=== PATIENT | male | born 1945 | race Caucasian/White ===

== ENCOUNTER → 2020-09-30 11:30 | Outpatient (CLI) | payer OTHER, SELFPAY ==
--- NOTE | 2020-09-30 | DI.MRI.S_ITS ---
PROCEDURE: MR LUMBAR SPINE WO CON INDICATIONS: Spinal stenosis, lumbar region TECHNIQUE: Noncontrast sagittal T1 spin echo and T2 fast echo, sagittal STIR, axial T1 and T2 fast spin echo through the lumbar spine. In cases with scoliosis, additional coronal T2 fast spin echo may be performed. COMPARISON: [facility], CR, XR LUMBAR SPINE 2 OR 3 VIEWS, 08/30/2020, 11:16. FINDINGS: Image quality: Excellent. Alignment and Curvature: Trace degenerative anterolisthesis of L4 on L5. Trace degenerative retrolisthesis of L3 on L4. Bone Marrow: Marrow is of normal overall signal. No acute vertebral body compression fractures. Spinal Cord: Conus medullaris terminates at the T12-L1 level. Visualized cord demonstrates normal signal and size. Paraspinous Soft Tissues: No paravertebral masses. T12-L1: No canal stenosis or foraminal stenosis. L1-L2: Mild disc bulge. No canal stenosis or foraminal stenosis. L2-L3: Disc bulge. Facet hypertrophy. No canal stenosis or foraminal stenosis. L3-L4: Disc bulge. Facet hypertrophy. No canal stenosis. Mild bilateral foraminal stenosis. L4-L5: Trace anterolisthesis of L4 on L5. Posterior disc bulge. Prominent facet and ligament hypertrophy. Moderate central canal stenosis and bilateral lateral recess stenosis. Moderate right foraminal narrowing with flattening deformity on the exiting right L4 nerve root. Mild to moderate left foraminal narrowing. L5-S1: Severe chronic disc height loss. Posterior disc post osteophyte. Facet hypertrophy. Mild canal stenosis. Mild right foraminal stenosis and moderate left foraminal stenosis. IMPRESSION: 1. Degenerative change with multilevel facet arthropathy. 2. There is moderate canal stenosis at L4-L5. There is also moderate right foraminal stenosis at that level. 3. There is mild canal stenosis at L5-S1. Dictated by: Dylan Rodrigues M.D. on 09/30/2020 at 14:42 Approved by: Dylan Rodrigues M.D. on 09/30/2020 at 14:48
== END ==
PROVIDERS: Referring Provider Physical Medicine & Rehabilitation Pain Medicine; Visit Provider Physical Medicine & Rehabilitation Pain Medicine
DX: M48.062 Spinal stenosis, lumbar region with neurogenic claudication (principal); M48.07 Spinal stenosis, lumbosacral region; M47.816 Spondylosis without myelopathy or radiculopathy, lumbar region; M47.817 Spondylosis without myelopathy or radiculopathy, lumbosacral region
CPT/HCPCS: 72148

== ENCOUNTER → 2021-01-20 10:12 | Outpatient (CLI) | payer OTHER, SELFPAY ==
[2021-01-20 11:23] LABS: COVID19 -Nasal RAPID Negative (Negative)
== END ==
PROVIDERS: PCP Internal Medicine; Referring Provider Orthopaedic Surgery Orthopaedic Surgery of the Spine; Visit Provider Nurse Practitioner Family
DX: Z20.822 Contact with and (suspected) exposure to COVID-19 (principal)
CPT/HCPCS: 87635

== ENCOUNTER → 2021-01-20 10:16 | Outpatient (CLI) | payer OTHER, SELFPAY ==
--- NOTE | 2021-01-20 10:21 | DI.CT.S_ITS ---
PROCEDURE: CT LUMBAR SPINE WO CON INDICATIONS: Intervertebral disc disorders with radiculopathy, lumbar reg TECHNIQUE: Noncontrast 3 mm thick sections acquired from the T12 level to the sacrum. Sagittal and coronal reformats were constructed. For radiation dose reduction, the following was used: automated exposure control. COMPARISON: [facility], MR, MR LUMBAR SPINE WO CON, 09/30/2020, 12:05. FINDINGS: Image quality: Excellent. Bones: There is there is grade 1 anterolisthesis of L4 on L5 measuring 2-3 mm, trace retrolisthesis of L3 on L4, 1-2 mm, unchanged no visualized fractures or dislocations. Multilevel anterior osteophytes are present with most prominent bridging osteophytes at L3-4. No suspicious osseous lesions. Severe disc space narrowing is present at L5-S1, mild to moderate throughout the remainder of the lumbar spine. Mild disc bulges are present L1-L2, L2-3, L3-4, L4-5 and L5-S1. Moderate spinal stenosis is present at L4-5, mild L5-S1 without change. Mild bilateral foraminal narrowing is present at L3-4, right greater than left, moderate right and [id number] left L4-5, mild right and moderate left L5-S1. Multilevel facet and ligamentum flavum hypertrophy are present. Soft tissues: No retroperitoneal masses or hematomas. Visualized aorta is normal in caliber. IMPRESSION: 1. Multilevel degenerative changes, stable compared to prior exam. 2. Spinal stenosis remains most prominent at L4-5 and L5-S1 secondary to disc bulge with contributing affective facet/ligamentum flavum arthropathy 3. Multilevel foraminal narrowing most notable at L4-5 secondary to facet/ligamentum flavum arthropathy. Dictated by: Alem Pérez M.D. on 01/20/2021 at 14:37 Approved by: Alem Péerz M.D. on 01/20/2021 at 14:42
== END ==
PROVIDERS: PCP Internal Medicine; Referring Provider Orthopaedic Surgery Orthopaedic Surgery of the Spine; Visit Provider Orthopaedic Surgery Orthopaedic Surgery of the Spine
DX: M51.16 Intervertebral disc disorders with radiculopathy, lumbar region (principal); M51.17 Intervertebral disc disorders with radiculopathy, lumbosacral region; M47.26 Other spondylosis with radiculopathy, lumbar region; M47.27 Other spondylosis with radiculopathy, lumbosacral region; M48.061 Spinal stenosis, lumbar region without neurogenic claudication; M48.07 Spinal stenosis, lumbosacral region; Z20.822 Contact with and (suspected) exposure to COVID-19
CPT/HCPCS: 72131; 87635

== ENCOUNTER 2021-01-23 06:04 | Observation (INO) | payer OTHER, SELFPAY ==
[2021-01-19 11:48] VITALS: BMI 23.6
[2021-01-23] VITALS (14 sets, daily range): BP systolic 117–146; BP diastolic 68–84; PULSE 64–98; RESP 8–17; TEMP 36.1–36.8; O2SAT 89–100; BMI 23.6
--- NOTE | 2021-01-23 | DI.RAD.S_ITS ---
PROCEDURE: XR LUMBAR SPINE 2-3V INDICATIONS: L4-5 L5-S1 TLIF TECHNIQUE: 2 views of the lumbar spine were acquired. COMPARISON: None. FINDINGS: Bones: Postsurgical changes compatible with L4-L5 and L5-S1 TLIF. Orthopedic hardware is in expected position. Orthopedic hardware is intact. Soft tissues: Overlying bowel gas pattern is normal. No suspicious soft tissue calcifications. IMPRESSION: Expected postsurgical change for L4-S1 TLIF. Dictated by: Reba Watkins MD, PhD on 01/23/2021 at 16:32 Approved by: Reba Watkins MD, PhD on 01/23/2021 at 16:33
[2021-01-23] MEDS: LACTATED RINGERS 1,000 ML 42 ML IV ×2 (06:58→10:38)
--- NOTE | 2021-01-23 07:41 | PM.PREOP ---
Pre-operative Note COVID-19 COVID-19 status: Negative Result date/Date tested (Pos, Neg/Pending): 01/21/21 Interval Note History & Physical reviewed/Exam performed by Physician: Yes Changes to H&P: No
[2021-01-23] MEDS: CEFAZOLIN 2 GM/20 ML SYRINGE IV ×3 (08:08→23:01)
--- NOTE | 2021-01-23 08:32 | SUR.OPER ---
Prone on spine table, head in foam head support, padded chest and pelvic supports, gel pad at knees, lower legs supported by pillows; nipples, genitalia and toes free of pressure, arms secured on foam padded arm boards at <90 degrees abduction. Tape over blanket at thigh secured to table.
[2021-01-23] MEDS: EPINEPHrine 1 MG/ML 0.15 MG INJ (08:46)
[2021-01-23] MEDS: BUPIVACAINE 0.25% (PF) VIAL 30 ML INJ (08:47)
--- NOTE | 2021-01-23 11:38 | PM.OP.1 ---
Operative Date/Time/Diagnoses Date of procedure: 01/23/21 Time of procedure: 07:45 Pre-op diagnosis: 1. L4-5, L5-S1 spondylolisthesis 2. L4-5, L5-S1 spinal stenosis Post-op diagnosis: same Procedure & Clinicians Procedure: 1. L4-5, L5-S1 Postero-lateral and posterior interbody fusion 2. L4-5, L5-S1 interbody cage placement. 3. L4-5, L5-S1 decompressive laminectomy with bilateral facetecomies 4. L4-5, L5-S1 Posterior segmental instrumentation 5. [place] of bone marrow from iliac crest 6. Utilization of microsurgical technique and operating microscope 7. Robotic assisted navigation surgery Same procedure as scheduled: Yes Indications: Patient has been having chronic back pain and worsening lumbar radiculopathy. Patient failed multiple conservative management with worsening pain weakness and numbness in his lower extremity. Patient has been having difficulty performing activity of daily living. After discussing risks benefits of treatment options, patient elected proceed with surgery. Surgeon: Lu Kuhn Systems Spec: Heriberto Hunt Click Yes if Unassisted: No Anesthesia Type: General Operative Notes Closure Type: primary Specimen(s): none sent Prosthetic devices, grafts, tissues, transplants, or devices: GLobus CREO MIS screws, Rise cages Estimated Blood Loss (mL): 200 Blood products transfused: none Procedure in detail: Patient was seen in the preoperative area. Risks and benefits of the surgery was discussed with the patient. Informed consent was obtained from the patient and placed in the chart. Surgical site was marked. Patient was taken to the operative room. General anesthesia was administered. Prophylactic antibiotic was given to the patient less than 30 min before the incision was made. Patient was placed into a prone position on the Nikolai table. Patient's back was then prepped and draped in the sterile fashion. Time-out was performed at this time. After patient was prepped and draped, patient's PSIS was palpated and marked bilaterally. Small 1 cm incision was made over the PSIS for placement of the reference probes. Two trocar was placed into the PSIS 1 on each side. The reference probe was attached to the trocar of the reference apparatus. At this time the C-arm imaging was used to confirm AP and lateral of L4-L5, L5-S1 vertebrae and merged the C-arm imaging using the StylePuzzle robotic navigation system with the CT of the lumbar spine. After successful merging was completed and confirmed, skin marker was used to srinivasa out the skin incision using the StylePuzzle robotic arm. Bilateral incision was made at this time. Pre templated trajectory was used and guided using the StylePuzzle robotic navigation system for bilateral L4, L5, S1 pedicle screw placement. This was done by using the robotic arm to guide the high-speed bur to make a cortical entry point. Next a drill was placed also using the robotic arm and guided using the navigation system drilling partially through bilateral L4, L5 and S1 pedicles. Next L4, L5, S1 pedicle screws it was pre templated and measured was placed onto the power owner operator tanker truck driver and inserted into the pedicles bilaterally. After all 6 screws were placed C-arm imaging was taken of both AP and lateral to confirm the placement. Excellent placement of the screws were confirmed and a matched precisely with the pre planned screw placement using the navigation system. MARs retractor was inserted using SpectraLinearivation guidence. Globus MARS retractors was placed inside the incision and docked onto the L4 and L5 lamina. Using microsurgical technique and operating microscope, a L4, L5 laminectomy and L4-5, L5-S1 facetectomy was performed using a Kerrison rongeur. Patient was found have severe lateral recess and neural foramen stenosis which was fully decompressed after the laminectomy facetectomy. More than 75% of the facets were removed during the process of decompression rendering L4-5, L5-S1 level grossly unstable and required a fusion procedure at the same time. The disc space at L4-5, L5-S1 was identified, and a total diskectomy was performed at L4-5, L5-S1 level. The endplates were decorticated using a rasp and shaver. The total diskectomy and decortication was performed at L4-5, L5-S1 level in order to to accomplish a L4-5, L5-S1 fusion. The local bone from the laminectomy and facetectomy was saved for local bone grafting. After the total diskectomy and decortication was completed, Trifecta bone graft material was combined with local bone that was harvested earlier. At this time, a separate skin is incision was made over the iliac crest. A Jamshidi needle was inserted into the iliac crest through a separate skin incision. 5 cc of bone marrow aspiration was obtained through the separate skin incision using a Jamshidi needle from the iliac crest. The bone marrow aspiration was combined with local bone and the Trifecta bone grafting material. The bone grafting material was placed into the L4-5, L5-S1 interbody space along with a expandable cage. The cage was expanded to its maximum height using the torque limiting screwdriver. The disc preparation as well as the cage insertion were also performed under navigation guidance. After the cage was placed, AP and lateral C-arm imaging was taken to confirm placement of the cage and excellent position was confirmed. Globus MARS retractor was inserted and docked onto the L4-5, L5-S1 posterolateral gutter on the right side. Using the power drill, posterior-lateral decortication was performed at L4-5, L5-S1 level until bleeding cortical bone was identified. The remaining bone grafting material was placed into the L4-5, L5-S1 posterior lateral gutter he order to accomplish posterolateral fusion at the L4-5, L5-S1 level. At this time the tulips were attached to the L4, L5, S1 pedicle screw shanks. After measuring the length of the rods, they were inserted into the tulips of the pedicle screws and locked in place using locking caps and torque limiting screwdriver bilaterally. Total 6 caps and 2 titanium rods was used in order to complete the posterior instrumentation construct. After all the hardware was placed, and confirmed with AP and lateral C-arm imaging, the wound was then irrigated with sterile normal saline and packed with Ray-Rosy gauze for 3 min to accomplish hemostasis. After the gauze was removed the deep fascia was closed with #1 Vicryl suture. The subcutaneous layer was closed with 2-0 Vicryl. The skin was closed with skin anne marie. Patient tolerated the procedure well. There were no complications. Neuro monitoring system was used to monitor patient's neurologic status throughout entire procedure. There was no disturbance of the neural monitoring signals throughout the case. Complications: none Post-operative Condition: stable Disposition: PACU Plan for aftercare: Admit to inpatient hospital
[2021-01-23] MEDS: fentaNYL 100 MCG/2 ML INJ IV ×2 (12:11→12:20)
[2021-01-23] MEDS: hydrOXYzine 50 MG/ML INJ IM (12:13)
[2021-01-23] MEDS: LORazepam 2 MG/ML INJ 0.5 MG IV (12:17)
--- NOTE | 2021-01-23 12:39 | SUR.PHASEI ---
2 level spine surgery states in alot of pain. Fentanyl, ativan and vistaril given. Sleeping soon after . When asked what pain level he is, states he doesn't know but in alot of pain.
[2021-01-23] MEDS: SODIUM CHLORIDE 0.9% 1,000 ML 100 ML IV ×2 (13:00→23:01)
[2021-01-23] MEDS: OXYCODONE IR 5 MG TABLET 10 MG PO ×3 (15:46→23:07)
--- NOTE | 2021-01-23 15:55 | PC.NURSE ---
Postop Note Pt arrived to room 228 from PACU at 1300. Drowsy, mostly sleeping on arrival, opening eyes to voice, minimal speech. SpO2 93-94% on RA, VSS. Dressing to lower back C/D/I. Scott patent and draining clear yellow urine. at bedside. Clothing to room closet, glasses to bedside table. No valuables to lock up in safe. At about 1500 pt awake and oriented x3, denies numbness to BLEs, strong pulses to bilateral feet, able to lift feet up off bed. Tolerating water and crackers without issue, medicated with 10 mg oxycodone for pain 08/27 to back. Oriented to room and to call light/bed/tv controls. Call light within reach and bed alarm on for safety.
--- NOTE | 2021-01-23 16:43 | PT.IIE ---
Current Diagnoses Spondylolisthesis, lumbar region (01/23/21) Spinal stenosis, lumbar region with neurogenic claudication (01/23/21) Intervertebral disc disorders with radiculopathy, lumbar region (01/23/21) Surgery Performed Operation Date: 01/23/21 07:45 Actual Procedures p L4-5, L5-S1 TLIF w. posterior inst. Robotic(Not Applicable) - Lu Kuhn MD Medical History (Last Updated 01/19/21 @ 12:19 by Jeannette Gómez RN) Arthritis GERD (gastroesophageal reflux disease) Glaucoma HLD (hyperlipidemia) Hx of subdural hematoma Lumbar disc disease with radiculopathy Lumbar spinal stenosis Neurological disorder (~2018) Prostate cancer Seasonal allergies Spondylolisthesis Physical Therapy Inpatient Evaluation/Re-Eval M1 PT/OT-IP Prior Functional Status Start: 01/23/21 12:54 Freq: NEEDED Status: Active Protocol: Document 01/23/21 16:43 JG (Rec: 01/23/21 16:59 JG [id number]) Medical Review Prior Functional Status Medical History Reviewed Yes Communication Pt was able to communicate fully Mobility and Gait No AD use. Progressively more limited in walking distance and duration over last year to point that shopping trips were difficulty to manage. Last fall in 2018. Activities of Daily Living and IADL's Indep in all ADLs Social History Household Members spouse,children Living Arrangements House Number of Floors (Floors) One Floor Number of Stairs To Enter/Railing? Garage: 2 CHELE, railing on L. Front door: small ramp to bypass stair. 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 Pt lives with [place] and daughter. Both and daughter can assist w/caregiving. Pt reports bed at home is quite high and he has to go onto tiptoes to scoot hips back in order to sit on EOB. Pt is also concerned about FWW accessing his side of bed as wall is close on his side. suggested they switch sides during rehab stage as her side has more room. Pt has recliner that doesn't lock consistently which he can use during day. Pt enjoys gardening while listening to audiobooks. M2 PT-IP Current Condition Start: 01/23/21 12:54 Freq: NEEDED Status: Active Protocol: Document 01/23/21 16:43 JG (Rec: 01/23/21 16:59 JG [id number]) Physical Therapy Current Condition Current Condition Evaluation Date 01/23/21 Treatment Diagnosis S/P L4-L5, L5-S1 lumbar fusion , difficulty walking, decreased ROM Onset Date 01/23/21 M3 PT-IP Subjective Start: 01/23/21 12:54 Freq: NEEDED Status: Active Protocol: Document 01/23/21 16:43 JG (Rec: 01/23/21 16:59 JG [id number]) Subjective Physical Therapy Visit Type Type Initial Evaluation Visit Start Time 16:06 Visit Stop Time 16:43 Total Visit Minutes 37 Notes SPT Renea was directly supervised by CHANI Dickens Number of RURAL CARRIER Visits 0 Physical Therapy Visit Comments Patient Comments Pt provided history, with mild input by , with easy conversational pace. Patient Goals Reduce low back pain at baseline Return to yard work without increase in pain Amb in community, complete shopping trips without increase in pain Therapy Pain Assessment Pain When Pain Assessed At Rest Pain Present Pain Present Pain Reported Location back, right leg Intensity 6 Scale Used Numeric (0 - 10) Pain Behaviors Guarding Pain Management Techniques Re-positioning,Timing of Activity with Medications M4 PT-IP Mobility and Gait Start: 01/23/21 12:54 Freq: NEEDED Status: Active Protocol: Document 01/23/21 16:43 AW (Rec: 01/23/21 16:58 AW [id number]) PT-Bed Mobility Assessment Rolling Type of Rolling Log Rolling,Roll to Left Level of Assist Minimal Assistance,1 Person Assistance Supine to Sit Supine to Sit Minimal Assistance,1 Person Assistance,Bedrails Sit to Supine Sit to Supine Contact Guard Assistance,1 Person Assistance Scooting Scooting to Edge of Bed Contact Guard Assistance PT-Transfer Assessment Sit to and From Stand Sit to and from Stand Minimal Assistance,1 Person Assistance,Use of Upper Extremities Equipment Transfer Assistive Device Gait Belt,Front Wheeled Walker Orthotic/Prosthetic Devices or Brace: No Transfers Transfer Destination Bed,Chair Transfer Technique pt amb with FWW Transfer Ability Level of Assist Minimal Assistance,1 Person Assistance,Use of Upper Extremities Comments Mobility Comments Pt was lying in the bed visiting with his spouse as PT and SPT arrived. BP was 129/ 77 HR 95. He indicated he normally gets out of bed to his left. He needed min A x 1 for log roll and for SL to sit transition but had good understanding of mechanics and technique. Pt sat EOB with and without UE support. He stood min A x 1 and used FWW to ambulate slowly around the room ~20 feet before transferring to the chair. He stated preference to go back to bed and transferred min A x 1 with FWW, min A x 1 for sit to supine. Gait Assessment Gait Gait Assistance Required: Contact Guard Assist,1 Person Assist Distance (Feet) 20 Able to Maintain Weight Bearing Status Yes During Gait Assistive Devices Assistive Device Gait Belt,Front Wheeled Walker Orthotic/Prosthetic Devices or Brace: No Gait Deviations General Gait Pattern Antalgic,Decreased Stride Length,Decreased Feet Clearance Factors Limiting Gait Function Factors Limiting Gait Function Decreased Strength,Limited Range of Motion,Pain Comments Gait Comments Pt ambulated with FWW using short steps but with good attention to twisting precaution. Stair Climbing Assessment Comments Stair Climbing Comments Not assessed. PT-Balance Assessment Sitting Balance and Reactions Static Sitting Balance Ability Good Dynamic Sitting Balance Ability Good Standing Balance and Reactions Static Standing Balance Ability Good Dynamic Standing Balance Ability Fair Device Used FWW M5 PT-IP Objective Assessments Start: 01/23/21 12:54 Freq: NEEDED Status: Active Protocol: Document 01/23/21 16:43 AW (Rec: 01/23/21 16:58 AW [id number]) Orientation Orientation/Cognition Level of Alertness Alert Orientation Name,Day of Week,Place, Situation Language Function Ability No Deficits Noted Safety Awareness Understands Safety Issues Memory Description No Deficits Noted Gross Range of Motion Lower Extremity ROM Assessment Within Functional Limits Strength Lower Extremity Strength Assessment Bilaterally Impaired Hip 4-/5 Knee 4/5 Ankle 4+/5 Sensation Assessment Sensation Gross Sensation WNL Comments Sensation Comments Pt denies paresthesias or numbness. M6 PT-IP Treatment Start: 01/23/21 12:54 Freq: NEEDED Status: Active Protocol: Document 01/23/21 16:43 AW (Rec: 01/23/21 16:58 AW [id number]) Physical Therapy Treatment Education Education Provided Precautions,Weight Bearing Status,Post-Op Packet,Safety Other Treatments Other Treatment Performed Educated pt on PT plan of care , weightbearing status, post- op spinal precautions, and safe use of FWW. M7 PT-IP Assessment and Plan Start: 01/23/21 12:54 Freq: NEEDED Status: Active Protocol: Document 01/23/21 16:43 AW (Rec: 01/23/21 16:58 AW [id number]) PT Summary Assessment and Plan Potential Rehabilitation Potential Good Status of Condition at Evaluation Evolving Summary Impairments Pain,ROM,Strength,Balance,Bed Mobility,Transfers,Gait Assessment Summary Milton is a 75 yo man seen for PT evaluation on POD0 following L4-S1 TLIF. He is independent with all mobility and ADL's at baseline but admits to decreased functional capacity related to back and RLE pain. On evaluation, pt was receptive to education on post -op precautions and was able to implement them functionally , requiring min assist for transfers and CGA for ambulation with FWW. PT anticipates pt will progress well enough during his hospital stay to discharge home with family assist. Pt is likely to benefit from outpatient PT to progress his strength and mobility independence. Goals Bed Mobility Goal Standby Assistance Transfer Goal Standby Assistance,Front Wheeled Walker Gait Goal Standby Assistance,Front Wheel Walker Gait Distance 150 Days to Meet Goals 4 Frequency of Treatment Frequency Of Treatment Twice a Day Treatment Plan Physical Therapy Treatment Plan Bed Mobility Training,Transfer Training,Gait Training, Therapeutic Exercise,Balance Retraining,Post Op Education, Discharge Planning,Hot or Cold Pack Other Recommendations and Next Treatment review precautions; progress Focus gait training with FWW Precautions Lumbar Precautions Log Roll,No Twisting,Limit Bending,Lifting Restriction of 10 lbs,Gait Belt above Incisional Area Weight Bearing Status Weight Bearing Status Weight Bear as Tolerated Recommendations To Nursing Amount of Assist Needed 1 Person Assist Discharge Recommendations PT Discharge Recommendations Home with Assistance, Outpatient PT Transportation Needs at Discharge Private Vehicle
[2021-01-23] MEDS: LATANOPROST 0.005% OPHTH 2.5 ML 1 DROPS EYE-BOTH (20:07)
[2021-01-23] MEDS: DORZOLAMIDE 2% OPHTH 10 ML 1 DROPS EYE-BOTH (20:07)
[2021-01-23] MEDS: gemfibroziL 600 MG TABLET PO (20:07)
[2021-01-23] MEDS: SENNOSIDES 8.6 MG TABLET 17.2 MG PO (20:07)
[2021-01-23] MEDS: DOCUSATE 100 MG CAPSULE PO (20:07)
[2021-01-23] MEDS: BRIMONIDINE 0.2% OPHTH 5 ML 1 DROPS EYE-BOTH (20:08)
[2021-01-23] MEDS: HYDROMORPHONE 0.5 MG INJ IV (20:08)
[2021-01-24] VITALS (7 sets, daily range): BP systolic 111–148; BP diastolic 63–86; PULSE 76–95; RESP 16–19; TEMP 36.3–37.4; O2SAT 94–99
[2021-01-24] MEDS: HYDROMORPHONE 0.5 MG INJ IV ×3 (04:08→23:30)
[2021-01-24 05:29] LABS: Hematocrit 32.6 % (41-53); Hemoglobin 11.5 g/dL (13.5-17.5)
[2021-01-24] MEDS: PANTOPRAZOLE DR 40 MG TABLET PO (06:31)
[2021-01-24] MEDS: OXYCODONE IR 5 MG TABLET 10 MG PO ×6 (06:31→22:50)
[2021-01-24] MEDS: BRIMONIDINE 0.2% OPHTH 5 ML 1 DROPS EYE-BOTH ×2 (08:24→20:50)
[2021-01-24] MEDS: DOCUSATE 100 MG CAPSULE PO ×2 (08:24→20:50)
[2021-01-24] MEDS: DORZOLAMIDE 2% OPHTH 10 ML 1 DROPS EYE-BOTH ×2 (08:24→20:50)
[2021-01-24] MEDS: gemfibroziL 600 MG TABLET PO ×2 (08:31→20:51)
--- NOTE | 2021-01-24 10:45 | PT.IPTN ---
Current Diagnoses Spondylolisthesis, lumbar region (01/23/21) Spinal stenosis, lumbar region with neurogenic claudication (01/23/21) Intervertebral disc disorders with radiculopathy, lumbar region (01/23/21) Surgery Performed Operation Date: 01/23/21 07:45 Actual Procedures p L4-5, L5-S1 TLIF w. posterior inst. Robotic(Not Applicable) - Lu Kuhn MD Physical Therapy Treatment Note M2 PT-IP Current Condition Start: 01/23/21 12:54 Freq: NEEDED Status: Active Protocol: Document 01/23/21 16:43 JG (Rec: 01/23/21 16:59 JG [id number]) Physical Therapy Current Condition Current Condition Evaluation Date 01/23/21 Treatment Diagnosis S/P L4-L5, L5-S1 lumbar fusion , difficulty walking, decreased ROM Onset Date 01/23/21 M3 PT-IP Subjective Start: 01/23/21 12:54 Freq: NEEDED Status: Active Protocol: Document 01/24/21 10:17 KS (Rec: 01/24/21 13:52 KS [id number]) Subjective Physical Therapy Visit Type Type Treatment Note Visit Start Time 10:17 Visit Stop Time 10:45 Total Visit Minutes 28 Notes Pts present during treatment Number of ENGINEERING SECRETARY Visits 1 Physical Therapy Visit Comments Patient Comments Pts present during treatment. Patient Goals Reduce low back pain at baseline Return to yard work without increase in pain Amb in community, complete shopping trips without increase in pain M4 PT-IP Mobility and Gait Start: 01/23/21 12:54 Freq: NEEDED Status: Active Protocol: Document 01/24/21 10:17 KS (Rec: 01/24/21 13:52 KS [id number]) PT-Bed Mobility Assessment Rolling Type of Rolling Log Rolling,Roll to Left Level of Assist Contact Guard Assistance,1 Person Assistance Supine to Sit Supine to Sit Contact Guard Assistance,1 Person Assistance,Bedrails Sit to Supine Sit to Supine Minimal Assistance,1 Person Assistance Scooting Scooting to Edge of Bed Contact Guard Assistance PT-Transfer Assessment Sit to and From Stand Sit to and from Stand Contact Guard Assistance,1 Person Assistance,Use of Upper Extremities Equipment Transfer Assistive Device Gait Belt,Front Wheeled Walker Orthotic/Prosthetic Devices or Brace: No Transfers Transfer Destination Bed Transfer Technique pt amb with FWW Transfer Ability Level of Assist Minimal Assistance,1 Person Assistance,Use of Upper Extremities Comments Mobility Comments Pt in bed upon arrival from therapy and able to recall 2/3 precautions (no lifting). CGA for logroll to L and sidelying<>sit w/ cues for sequencing and avoidance of twistng. Pt CGA for scooting to EOB and then sit<>stand CGA w/ FWW w/ cues for hand placement. Pt then ambulatd ~ 30 ft in room w/ FWW CGA and expressed fatigue and increased pain and requested to get back into bed. Min A for sit<>sidelyign and repositioning in bed. Pt left in bed w/ all needs in reach and SCDs and alarm on. Gait Assessment Gait Gait Assistance Required: Contact Guard Assist,1 Person Assist Distance (Feet) 30 Able to Maintain Weight Bearing Status Yes During Gait Assistive Devices Assistive Device Gait Belt,Front Wheeled Walker Orthotic/Prosthetic Devices or Brace: No Gait Deviations General Gait Pattern Antalgic,Decreased Stride Length,Decreased Feet Clearance Factors Limiting Gait Function Factors Limiting Gait Function Decreased Strength,Limited Range of Motion,Pain Comments Gait Comments Pt ambulated ~30 ft w/ FWW, slowly w/ decreased stride and foot clearance and increased use of BUE due to pain. Stair Climbing Assessment Comments Stair Climbing Comments Not assessed. Pt reports ramp at home. PT-Balance Assessment Sitting Balance and Reactions Static Sitting Balance Ability Good Dynamic Sitting Balance Ability Good Standing Balance and Reactions Static Standing Balance Ability Good Dynamic Standing Balance Ability Fair Device Used FWW M5 PT-IP Objective Assessments Start: 01/23/21 12:54 Freq: NEEDED Status: Active Protocol: Document 01/23/21 16:43 AW (Rec: 01/23/21 16:58 AW [id number]) Orientation Orientation/Cognition Level of Alertness Alert Orientation Name,Day of Week,Place, Situation Language Function Ability No Deficits Noted Safety Awareness Understands Safety Issues Memory Description No Deficits Noted Gross Range of Motion Lower Extremity ROM Assessment Within Functional Limits Strength Lower Extremity Strength Assessment Bilaterally Impaired Hip 4-/5 Knee 4/5 Ankle 4+/5 Sensation Assessment Sensation Gross Sensation WNL Comments Sensation Comments Pt denies paresthesias or numbness. M6 PT-IP Treatment Start: 01/23/21 12:54 Freq: NEEDED Status: Active Protocol: Document 01/24/21 10:17 KS (Rec: 01/24/21 13:52 KS [id number]) Physical Therapy Treatment Education Education Provided Precautions,Weight Bearing Status,Post-Op Packet,Safety Other Treatments Other Treatment Performed Educated pt on PT plan of care , weightbearing status, post- op spinal precautions, and safe use of FWW. M7 PT-IP Assessment and Plan Start: 01/23/21 12:54 Freq: NEEDED Status: Active Protocol: Document 01/24/21 10:17 KS (Rec: 01/24/21 13:52 KS [id number]) PT Summary Assessment and Plan Potential Rehabilitation Potential Good Status of Condition at Evaluation Evolving Summary Impairments Pain,ROM,Strength,Balance,Bed Mobility,Transfers,Gait Assessment Summary Pt requires CGA to Min A and cues during treatment. Able to perform logroll and sup<>sit CGA, CGA for sit to stand and ambulation, Min A for getting back into bed. He was limited in ambulation today due to pain and fatigue. He will benefit from continued IP PT to improve activity tolerance, strength, and safety but ultimately would benefit from outpatient rehab when appropriate. Goals Bed Mobility Goal Standby Assistance Transfer Goal Standby Assistance,Front Wheeled Walker Gait Goal Standby Assistance,Front Wheel Walker Gait Distance 150 Days to Meet Goals 4 Frequency of Treatment Frequency Of Treatment Twice a Day Treatment Plan Physical Therapy Treatment Plan Bed Mobility Training,Transfer Training,Gait Training, Therapeutic Exercise,Balance Retraining,Post Op Education, Discharge Planning,Hot or Cold Pack Other Recommendations and Next Treatment review precautions; progress Focus gait training with FWW Precautions Lumbar Precautions Log Roll,No Twisting,Limit Bending,Lifting Restriction of 10 lbs,Gait Belt above Incisional Area Weight Bearing Status Weight Bearing Status Weight Bear as Tolerated Recommendations To Nursing Amount of Assist Needed 1 Person Assist Discharge Recommendations PT Discharge Recommendations Home with Assistance, Outpatient PT Transportation Needs at Discharge Private Vehicle
--- NOTE | 2021-01-24 10:51 | P.PN_ITS ---
Subjective Subjective Date Patient Seen: 01/24/21 Time Patient Seen: 10:51 Interval history: Patient's pain is been moderate to severe. Denies fever or chills. No nausea or vomiting. Exam Vital Signs (past 8 hours): - 01/24/21 04:00 01/24/21 07:55 01/24/21 09:00 Temperature 99.0 F 99.0 F Pulse Rate 82 76 Respiratory Rate 19 18 Blood Pressure 111/63 131/81 Pulse Oximetry 96 97 Oxygen Delivery Method Room Air Oxygen Flow Rate 0 Narrative Exam Narrative: 75-year-old male resting comfortably in bed in no apparent distress. Dressing is Clean, dry, intact.. Motor functions intact bilateral lower extremities. Se nsation grossly intact to light touch bilateral lower extremities. Objective Labs Result Diagrams: 01/24/21 05:00 Labs: Laboratory Results - last 24 hr 01/24/21 05:00 Hgb 11.5 L Hct 32.6 L PFSH Medical History Arthritis GERD (gastroesophageal reflux disease) Glaucoma HLD (hyperlipidemia) Hx of subdural hematoma Lumbar disc disease with radiculopathy Lumbar spinal stenosis Neurological disorder (~2018) Prostate cancer Seasonal allergies Spondylolisthesis Surgical History History of kj hole surgery (~2018) History of penile implant Hx of bilateral cataract extraction Hx of foot surgery Hx of LASIK Hx of radical prostatectomy (~2013) Hx of repair of right rotator cuff (2019) Hx of sinus surgery Hx of tonsillectomy Social History household members: spouse and children Smoking Status: Never smoker alcohol intake: current Assessment & Plan Post-op Postoperative Procedures: Procedures Operation Date: 01/23/21 07:45 Actual Procedure Side Surgeon p L4-5, L5-S1 TLIF w. posterior inst. Robotic Not Applicable Lu Kuhn MD Postoperative day: 1 Postoperative status: marginal pain control Postoperative plan narrative: Mobilize with physical therapy Limit bending, lifting, twisting Multimodal pain management Disposition home likely tomorrow. Quality VTE Deep Vein Thrombosis/Pulmonary Embolism Present on Admission: No
--- NOTE | 2021-01-24 14:08 | CM.DANOTE ---
DCP/Assessment: Reviewed chart. Patient is a 75yr old male admitted to [facility] for elective spine surgery which was performed on 01-[address] Kuhn. PCP is Annika Fox. Primary payor is 1)[email or web address] 2)Self. Met with patient and spouse at bedside explained CM/SW role. Patient alert and oriented, resting in bed at time of visit. Patient reports that he plans to d/c home when medically stable. Patient reports that he has been seen by therapy and patient does not anticipate any additional d/c planning needs. Patient with tyrell at time of BUTTON RECLAIMER visit. RN reports that she will be taking it out this afternoon. Orthopedic team expected to round again on patient this afternoon. Patient reports that he still is in a considerate amount of pain and hopes to d/c tomorrow? Encouraged patient and spouse to discuss d/c date with provider. P: Home when stable. KJS Discharge Planning/Care Management CM Discharge Assessment Start: 01/24/21 14:06 Freq: Status: Active Protocol: Document 01/24/21 14:06 KJS (Rec: 01/24/21 14:08 KJS [id number]) Discharge Planning Assessment Assigned Assessment Expert Brandy Hendricks BUTTON RECLAIMER Contact Information Asia Vicente (spouse) ph# [phone] Advance Directives? Yes Advance Directives on File No History Provided By Patient,Significant Other, Medical Record Prior Living Arrangements House Household Members spouse,children Type of transporation used prior to Drives own vehicle admit Independent with ADL's Yes Is patient alert and oriented? Yes Caregiver for Another No DME Already Rented / Owned FWW / Walker Comment Has FWW but does not use at baseline. Barriers to Discharge No Discharge Plan Home Transportation Arrangement Family to provide transport. Referrals Initiated None needed Whiteboard Updated in Patient Room with Yes name and ext. # of Assessment Expert Review Status In Process Next Review Type Continued Stay Review Pre-Anesthesia Assessment Start: 01/19/21 11:48 Freq: Status: Complete Protocol: Document 01/19/21 11:48 CAB (Rec: 01/19/21 12:37 CAB [id number]) Pre-Anesthesia Assessment Preferred Name Milton Patient Information Reviewed Via Phone Assessment Assessment Completed With Patient Diagnostic Results BMP/CMP,CBC,EKG Comment Outside labs/EKG scanned, COVID screen @ 01/20/21 Primary Care Provider Annika Fox Seen Specialist in Last 12 Months Yes Specialist Seen Orthopedist Primary Language Telugu Salesperson Stereo Equipment Required No Height 175.26 cm Weight 72.575 kg Body Mass Index (BMI) 23.6 Hearing Ability Hard of Hearing,Use of Hearing Aid Visual Assist Glasses Dentition Type Teeth, Natural Present Barriers to Learning None Hx Anesthesia Reactions No Hx Family Anesthesia Reaction No Hx Malignant Hyperthermia No Hx Blood Transfusions No Anesthesia Review Requested No alcohol intake current Alcohol Intake Frequency Other: Occasional Smoking Status Never smoker Substance Use Type does not use Pain Present Pain Reported Musculoskeletal Symptoms Abnormal Gait,Back Pain, Difficulty Walking History of Falling (Recent or History of Yes ) Patient is completely paralyzed or No completely immobile Mental Status Oriented to own ability Is patient on oxygen? No Does patient have ALVARADO/SOB No Hx Sleep Apnea No Currently Taking a Beta Amanda No Can You Climb a Flight of Stairs Without Yes SOB Hx Chest Pain No Hx SOB No Hx Syncope or Dizziness No Anti-Coagulant Therapy No Has a Forensic Analyst No Cardiac Testing No Hx Pacemaker/ICD No Pacemaker Rep Required? No Cardiac Clearance Received Not Applicable Diet Type At Home Regular dysphagia Yes: Mild, with solids, pills Gastrointestinal Symptoms Reflux Bladder Pattern Frequency Urinary Catheter Present No Hx Urinary Self Catheterization No Diabetes No HgbA1C 5.8 Date 01/06/21 Presence of External or Internal Medical Yes: Penile implant, sara IOLs, Devices hearing aid Have you had any close contact with No someone diagnosed with COVID-19? Received a COVID vaccine? Yes: +Booster Received all doses? Yes Marital Status Lives With spouse,children Prior Living Arrangements House Number of Floors (Floors) One Floor Support System Child/Children,Spouse Patient Discharge Plan Description Return Home Comment Pt advised 2 night length of stay per surgeon Feels Safe in Current Environment Yes Been Physically Hurt or Threatened By a No Person in Current Environment Do you have thoughts of harming yourself None or others? Are you currently considering suicide? No Do you have a plan to hurt yourself or No Plan others? Do You Have Any Spiritual Beliefs That No May Affect Your HC Choices? Do You Have Any Cultural Practices That No May Affect Your HC Choices? Who Can We Speak to About Patient's Care Family, friends Identifying Code for Release of Patient Declines to issue Information Health Care Proxy/Next of Kin Asia () Health Care Proxy Emergency Contact Name Asia () Emergency Contact Advance Directives? Yes: Working on Requested Patient Bring Advanced Yes Directives DOS Power of Plate Corrector Yes Power of Plate Corrector Name Asia () Power of Plate Corrector PAC Instructions Durable medical equipment, Medications to take/avoid, Nasal antibiotic,No ETOH/ petroleum product on skin DOS, NPO,Post-op transportation,Pre -surgical wash,Sensory aids, Sturdy shoes/comfortable clothes,Do not bring valuables and remove jewelry
--- NOTE | 2021-01-24 15:09 | PT.IPTN ---
Current Diagnoses Spondylolisthesis, lumbar region (01/23/21) Spinal stenosis, lumbar region with neurogenic claudication (01/23/21) Intervertebral disc disorders with radiculopathy, lumbar region (01/23/21) Surgery Performed Operation Date: 01/23/21 07:45 Actual Procedures p L4-5, L5-S1 TLIF w. posterior inst. Robotic(Not Applicable) - Lu Kuhn MD Physical Therapy Treatment Note M2 PT-IP Current Condition Start: 01/23/21 12:54 Freq: NEEDED Status: Active Protocol: Document 01/23/21 16:43 JG (Rec: 01/23/21 16:59 JG [id number]) Physical Therapy Current Condition Current Condition Evaluation Date 01/23/21 Treatment Diagnosis S/P L4-L5, L5-S1 lumbar fusion , difficulty walking, decreased ROM Onset Date 01/23/21 M3 PT-IP Subjective Start: 01/23/21 12:54 Freq: NEEDED Status: Active Protocol: Document 01/24/21 14:46 KS (Rec: 01/24/21 15:30 KS [id number]) Subjective Physical Therapy Visit Type Type Treatment Note Visit Start Time 14:46 Visit Stop Time 15:09 Total Visit Minutes 23 Notes Pts present during treatment Number of DISPENSING OPTICIAN APPRENTICE Visits 2 Physical Therapy Visit Comments Patient Comments Pts present during treatment. Patient Goals Reduce low back pain at baseline Return to yard work without increase in pain Amb in community, complete shopping trips without increase in pain Therapy Pain Assessment Pain When Pain Assessed During Mobility Pain Present Pain Present Pain Reported Location Lower Back Intensity 5 Scale Used Numeric (0 - 10) Pain Behaviors Guarding Pain Management Techniques Re-positioning,Timing of Activity with Medications M4 PT-IP Mobility and Gait Start: 01/23/21 12:54 Freq: NEEDED Status: Active Protocol: Document 01/24/21 14:46 KS (Rec: 01/24/21 15:30 KS [id number]) PT-Bed Mobility Assessment Rolling Type of Rolling Log Rolling,Roll to Left Level of Assist Contact Guard Assistance,1 Person Assistance Supine to Sit Supine to Sit Contact Guard Assistance,1 Person Assistance,Bedrails Sit to Supine Sit to Supine Minimal Assistance,1 Person Assistance Scooting Scooting to Edge of Bed Contact Guard Assistance PT-Transfer Assessment Sit to and From Stand Sit to and from Stand Contact Guard Assistance,1 Person Assistance,Use of Upper Extremities Equipment Transfer Assistive Device Gait Belt,Front Wheeled Walker Orthotic/Prosthetic Devices or Brace: No Transfers Transfer Destination Bed Transfer Technique pt amb with FWW Transfer Ability Level of Assist Minimal Assistance,1 Person Assistance,Use of Upper Extremities Comments Mobility Comments Pt in bed and able to recall all spinal precations. CGA for logroll and sup<>sit as well as scooting EOB. CGA and cues for sit<>stand w/ FWW. Pt then ambulated ~50 ft around room w/ FWW and CGA. Pt ambulated very slowly w/ small steps and minimal foot clearance. Pt then returned to bed, Min A and cues for sit<>sidelying. Pt left in bed w/ all needs in reach. Gait Assessment Gait Gait Assistance Required: Contact Guard Assist,1 Person Assist Distance (Feet) 50 Able to Maintain Weight Bearing Status Yes During Gait Assistive Devices Assistive Device Gait Belt,Front Wheeled Walker Orthotic/Prosthetic Devices or Brace: No Gait Deviations General Gait Pattern Antalgic,Decreased Stride Length,Decreased Feet Clearance Factors Limiting Gait Function Factors Limiting Gait Function Decreased Strength,Limited Range of Motion,Pain Comments Gait Comments Please refer to mobility section for details. Stair Climbing Assessment Comments Stair Climbing Comments Not assessed. Pt reports ramp at home. PT-Balance Assessment Sitting Balance and Reactions Static Sitting Balance Ability Good Dynamic Sitting Balance Ability Good Standing Balance and Reactions Static Standing Balance Ability Good Dynamic Standing Balance Ability Fair Device Used FWW M5 PT-IP Objective Assessments Start: 01/23/21 12:54 Freq: NEEDED Status: Active Protocol: Document 01/23/21 16:43 AW (Rec: 01/23/21 16:58 AW [id number]) Orientation Orientation/Cognition Level of Alertness Alert Orientation Name,Day of Week,Place, Situation Language Function Ability No Deficits Noted Safety Awareness Understands Safety Issues Memory Description No Deficits Noted Gross Range of Motion Lower Extremity ROM Assessment Within Functional Limits Strength Lower Extremity Strength Assessment Bilaterally Impaired Hip 4-/5 Knee 4/5 Ankle 4+/5 Sensation Assessment Sensation Gross Sensation WNL Comments Sensation Comments Pt denies paresthesias or numbness. M6 PT-IP Treatment Start: 01/23/21 12:54 Freq: NEEDED Status: Active Protocol: Document 01/24/21 14:46 KS (Rec: 01/24/21 15:30 KS [id number]) Physical Therapy Treatment Education Education Provided Precautions,Weight Bearing Status,Post-Op Packet,Safety Other Treatments Other Treatment Performed Demonstrated gait belt application and use to pts . M7 PT-IP Assessment and Plan Start: 01/23/21 12:54 Freq: NEEDED Status: Active Protocol: Document 01/24/21 14:46 KS (Rec: 01/24/21 15:30 KS [id number]) PT Summary Assessment and Plan Potential Rehabilitation Potential Good Status of Condition at Evaluation Evolving Summary Impairments Pain,ROM,Strength,Balance,Bed Mobility,Transfers,Gait Assessment Summary Pt CCGA for most mobility and ambulation, but still requiring Min A to assist LE back into bed during sidelying <>sit. Good recall of spinal precautions and FWW use. Able to ambulate ~50 ft w/ FWW CGA. Demonstrated gaitbelt application to pts , but will need to continue caregiver training and demonstrate assistance w/ transfers and bed mobility prior to d/c. Goals Bed Mobility Goal Standby Assistance Transfer Goal Standby Assistance,Front Wheeled Walker Gait Goal Standby Assistance,Front Wheel Walker Gait Distance 150 Days to Meet Goals 4 Frequency of Treatment Frequency Of Treatment Twice a Day Treatment Plan Physical Therapy Treatment Plan Bed Mobility Training,Transfer Training,Gait Training, Therapeutic Exercise,Balance Retraining,Post Op Education, Discharge Planning,Hot or Cold Pack Other Recommendations and Next Treatment review precautions; progress Focus gait training with FWW, complete caregiver training Precautions Lumbar Precautions Log Roll,No Twisting,Limit Bending,Lifting Restriction of 10 lbs,Gait Belt above Incisional Area Weight Bearing Status Weight Bearing Status Weight Bear as Tolerated Recommendations To Nursing Amount of Assist Needed 1 Person Assist Discharge Recommendations Transportation Needs at Discharge Private Vehicle
--- NOTE | 2021-01-24 15:58 | OT.IP.EVAL ---
Current Diagnoses Spondylolisthesis, lumbar region (01/23/21) Spinal stenosis, lumbar region with neurogenic claudication (01/23/21) Intervertebral disc disorders with radiculopathy, lumbar region (01/23/21) Surgery Performed Operation Date: 01/23/21 07:45 Actual Procedures p L4-5, L5-S1 TLIF w. posterior inst. Robotic(Not Applicable) - Lu Kuhn MD Past Medical History (Last Reviewed 01/24/21 @ 10:52 by Heriberto Hunt PA-C) Arthritis GERD (gastroesophageal reflux disease) Glaucoma History of kj hole surgery (~2017) History of penile implant HLD (hyperlipidemia) Hx of bilateral cataract extraction Hx of foot surgery Hx of LASIK Hx of radical prostatectomy (~2013) Hx of repair of right rotator cuff (2019) Hx of sinus surgery Hx of subdural hematoma Hx of tonsillectomy Lumbar disc disease with radiculopathy Lumbar spinal stenosis Neurological disorder (~2018) Prostate cancer Seasonal allergies Spondylolisthesis Surgical History (Last Reviewed 01/24/21 @ 10:52 by Heriberto Hunt PA-C) History of kj hole surgery (~2017) History of penile implant Hx of bilateral cataract extraction Hx of foot surgery Hx of LASIK Hx of radical prostatectomy (~2013) Hx of repair of right rotator cuff (2019) Hx of sinus surgery Hx of tonsillectomy Occupational Therapy Inpatient Evaluation/Re-Eval M1 PT/OT-IP Prior Functional Status Start: 01/23/21 12:54 Freq: NEEDED Status: Active Protocol: Document 01/24/21 15:10 [facility] (Rec: 01/24/21 16:38 [facility] [id number]) Medical Review Prior Functional Status Medical History Reviewed Yes Communication Pt was able to communicate fully Mobility and Gait No AD use. Progressively more limited in walking distance and duration over last year to point that shopping trips were difficulty to manage. Last fall in 2018. Activities of Daily Living and IADL's Indep in all ADLs Social History Household Members spouse,children Living Arrangements House Number of Floors (Floors) One Floor Number of Stairs To Enter/Railing? Garage: 2 CHELE, railing on L. Front door: small ramp to bypass stair. 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 Pt lives with [place] and daughter. Both and daughter can assist w/caregiving. Pt reports bed at home is quite high and he has to go onto tiptoes to scoot hips back in order to sit on EOB. Pt is also concerned about FWW accessing his side of bed as wall is close on his side. suggested they switch sides during rehab stage as her side has more room. Pt has recliner that doesn't lock consistently which he can use during day. Pt enjoys gardening while listening to audiobooks. M2 OT-IP Current Condition Start: 01/24/21 16:26 Freq: Status: Active Protocol: Document 01/24/21 15:10 [facility] (Rec: 01/24/21 16:38 [facility] [id number]) Occupational Therapy Current Condition Current Condition Evaluation Date 01/24/21 Treatment Diagnosis S/p L4-5 L5-S1 TLIF Diagnosis Onset Date 01/23/21 M3 OT- IP Subjective and Pain Start: 01/24/21 16:26 Freq: Status: Active Protocol: Document 01/24/21 15:10 [facility] (Rec: 01/24/21 16:38 [facility] [id number]) OT- Subjective Occupational Therapy Visit Type Type Initial Evaluation Visit Start Time 15:10 Visit Stop Time 15:58 Total Visit Minutes 48 Occupational Therapy Visit Comments Patient Comments Pt's present for OT eval and caregiver training. OT Pain Assessment Pain When Pain Assessed During Mobility Pain Present Pain Present Pain Reported Location Lower Back Intensity 6 Scale Used Numeric (0 - 10) M4 OT- IP ADL's Start: 01/24/21 16:26 Freq: Status: Active Protocol: Document 01/24/21 15:10 [facility] (Rec: 01/24/21 16:38 [facility] [id number]) OT ADL-Grooming General Evaluation Grooming Ability Standby Assistance Areas Needing Assistance Retrieving/Set-up of Grooming Items OT ADL-Oral Care General Eval Oral Care Ability Independent Comments Oral Care Comments vc to spit into a cup to bets follow his back precautions. OT ADL-Dressing General Eval Lower Body Dressing Ability Maximum Assistance Areas Needing Assistance Underpants/Brief,Socks Comments OT Dressing Comments Initiated education of LB dressing equipment and able to practice for his brief management needs. OT ADL-Toileting General Evaluation Toileting Ability Minimal Assistance Areas Needing Assistance Manage Clothing Comments OT Toileting Comments Assist to help pull up brief in the back when standing. Pt 's states they have a bidet at home but pt chooses not to use it. Also suggested use of wet wipes to increased ease for hygiene needs. Pt able to follow his back precautions while wiping after a bowel movement. OT ADL-Bathing Comments OT Bathing Comments TO do with his tomorrow. M5 OT- IP IADL's Start: 01/24/21 16:26 Freq: Status: Active Protocol: Document 01/24/21 15:10 [facility] (Rec: 01/24/21 16:38 [facility] [id number]) OT-Instrumental Activities of Daily Living Home Safety Awareness Home Safety Comments Pt a bit groggy and pt's to be able to assist pt at home for his needs. Pt needing reminders for his back precautions. M6 OT- IP Functional Cognition Start: 01/24/21 16:26 Freq: Status: Active Protocol: Document 01/24/21 15:10 [facility] (Rec: 01/24/21 16:38 [facility] [id number]) Cognitive Factors Limiting Selfcare Function Cognitive Ability Level of Alertness Alert Patient Orientation Name,Place,Situation Attention Span Ability Capable of Focused Attention, Capable of Sustained Attention Ability to Follow Commands Able to Follow One Step Commands Safety Awareness Decreased Recall of Precautions,Decreased Ability to Apply Precautions, Underestimates Need for Assistance Cognitive Comments Cognitive Assessment Comments Pt needing reminders to slow down , recall and follow his back precautions. Pt needing simple cues to follow. OT- Vision and Hearing OT- Vision Assessment Visual Acuity Glasses All The Time M7 OT- IP Mobility and Balance Start: 01/24/21 16:26 Freq: Status: Active Protocol: Document 01/24/21 15:10 [facility] (Rec: 01/24/21 16:38 [facility] [id number]) OT- Bed Mobility Assessment Supine to Sit Supine to Sit Assist Standby Assistance,Bedrails Sit to Supine Sit to Supine Assist Minimal Assistance,1 Person Assistance,Bedrails Scooting Scooting to Edge of Bed Standby Assistance OT-Transfer Assessment Sit to and From Stand Sit to and from Stand Contact Guard Assistance, Minimal Assistance Transfers Transfer Ability Contact Guard Assistance Technique Transfer Destination Bed,Toilet Transfer Technique Stand Step Pivot Devices Transfer Assistive Devices Gait Belt,Front Wheeled Walker Comments Mobility Comments Assist to help get his legs back in bed. Able to educated his on how to mike/doff the gait belt and how to assist for bed mobility needs and transfers. Pt's able to show good safety for needs. Pt's needing occasional cues for hand placement and how to lower pt down to lower surfaces. Pt has a very high bed at home and able to simulate with the hospital bed here. OT- Balance Assessment Sitting Balance and Reactions Static Sitting Balance Ability Good Dynamic Sitting Balance Ability Good Standing Balance and Reactions Static Standing Balance Ability Fair M9 OT- IP Assessment and Plan Start: 01/24/21 16:26 Freq: Status: Active Protocol: Document 01/24/21 15:10 [facility] (Rec: 01/24/21 16:38 [facility] [id number]) OT Summary Assessment and Plan Potential Rehabilitation Potential Good Analytic Complexity at Evaluation Low Summary OT Impairments Pain,Balance,Functional Cognition,Functional Mobility, Dressing,Toileting,Bathing, Toilet Transfers,Shower Transfers,Activity Tolerance Progress Towards Goals Progressing Toward Goals Assessment Summary Pt low complexity and pt's able to initiate caregiver training for ADl and mobility needs. Pt's to go over shower and dressing needs tomorrow during caregiver training. Pt to go home when medically stable with his . Goals Grooming Goal Independent Dressing Goal Independent Toileting Goal Independent Bathing Goal Minimal Assistance Toilet Transfer Goal Independent Shower Transfer Goal Standby Assistance Patient/Caregiver Education Goal Demonstrate Post-Op Precautions,Caregiver Independent Assisting Patient Days to Meet Goals 3 Frequency of Treatment Frequency Of Treatment Once a Day Treatment Plan OT Treatment Plan ADL Training,Functional Cognition Training,Functional Mobility,Patient/Family Education,Discharge Planning Other Treatment Recommendations and Next shower/caregiver training Treatment Focus Discharge Recommendations OT Discharge Recommendations Home with Assistance Transportation Needs at Discharge Private Vehicle
--- NOTE | 2021-01-24 16:25 | OT.IPNOTE ---
Pt being discharged and on the phone with his son. Pt will need 24/7 available assist at home.
[2021-01-24] MEDS: SODIUM CHLORIDE 0.9% FLUSH 10 ML IV (17:54)
[2021-01-24] MEDS: SENNOSIDES 8.6 MG TABLET 17.2 MG PO (20:50)
[2021-01-24] MEDS: LATANOPROST 0.005% OPHTH 2.5 ML 1 DROPS EYE-BOTH (20:50)
[2021-01-25] MEDS: OXYCODONE IR 5 MG TABLET 10 MG PO ×5 (02:37→21:39)
[2021-01-25 02:43] VITALS: BP 134/81; PULSE 93; RESP 20; TEMP 37.4; O2SAT 96
[2021-01-25] MEDS: PANTOPRAZOLE DR 40 MG TABLET PO (05:37)
[2021-01-25] MEDS: ACETAMINOPHEN 325 MG TABLET 650 MG PO ×3 (07:48→21:40)
[2021-01-25] MEDS: hydrOXYzine pamoate 25 MG CAPSULE PO ×3 (07:49→21:40)
[2021-01-25 07:50] VITALS: BP 137/87; PULSE 90; RESP 17; TEMP 37.4; O2SAT 94
--- NOTE | 2021-01-25 08:33 | PM.PNPO.1 ---
Subjective Subjective Date Patient Seen: 01/25/21 Time Patient Seen: 08:33 Interval history: Back pain is severe. Denies fever or chills. No nausea or vomiting. Exam Vital Signs (past 8 hours): - 01/25/21 02:43 Temperature 99.4 F Pulse Rate 93 H Respiratory Rate 20 Blood Pressure 134/81 Pulse Oximetry 96 Oxygen Delivery Method Room Air Oxygen Flow Rate 0 Narrative Exam Narrative: 75-year-old male resting in bed in no apparent distress. Dressing Clean, dry, intact.. Motor functions intact bilateral lower extremities. Sensation grossly intact to light touch bilateral lower extremities. Objective Labs Result Diagrams: 01/24/21 05:00 PFSH Medical History Arthritis GERD (gastroesophageal reflux disease) Glaucoma HLD (hyperlipidemia) Hx of subdural hematoma Lumbar disc disease with radiculopathy Lumbar spinal stenosis Neurological disorder (~2018) Prostate cancer Seasonal allergies Spondylolisthesis Surgical History History of kj hole surgery (~2018) History of penile implant Hx of bilateral cataract extraction Hx of foot surgery Hx of LASIK Hx of radical prostatectomy (~2013) Hx of repair of right rotator cuff (2019) Hx of sinus surgery Hx of tonsillectomy Social History household members: spouse and children Smoking Status: Never smoker alcohol intake: current Assessment & Plan Post-op Postoperative Procedures: Procedures Operation Date: 01/23/21 07:45 Actual Procedure Side Surgeon p L4-5, L5-S1 TLIF w. posterior inst. Robotic Not Applicable Lu Kuhn MD Postoperative status: marginal pain control Postoperative plan narrative: Mobilize with physical therapy, limit bending, lifting, twisting Continue work on pain control Disposition today or tomorrow depending on his ability to mobilize better with PT Quality VTE Deep Vein Thrombosis/Pulmonary Embolism Present on Admission: No
[2021-01-25] MEDS: DOCUSATE 100 MG CAPSULE PO ×2 (10:22→21:39)
[2021-01-25] MEDS: SODIUM CHLORIDE 0.9% FLUSH 10 ML IV ×2 (10:22→21:54)
--- NOTE | 2021-01-25 10:51 | PC.NURSE ---
Addendum entered by Marybel Morrell R.N. 01/25/21 19:13: Pt up multiple times to BR without bouts of hypotension or nausea later today and able to tolerate working with therapy. However he reports pain 9/10 after therapy not completely controlled with PRN oxycodone. His pain is better controlled this evening with additional IV 0.5mg hydromorphone. Pt able to eat dinner, supportive at bedside. Original Note: This a.m. patient reporting pain 6-7/10 to back and medicated with PRN oxycodone, tylenol and vesteril. He got up to the bathroom to have a BM and became nauseated and diaphoretic. Pt was hypotensive at the time 90's/50's HR 50's Pt with x1 large emesis. He is assisted back to bed and BP improved 117/66 HR 67.Triage notified and received orders to administer 1 liter NS bolus. Pt given zofran PRN x1. he was able to finish about half of his breakfast. Therapy attempted to see patient later this a.m. however he denied wanting to get up this soon, they will try again this afternoon
--- NOTE | 2021-01-25 11:08 | OT.IPNOTE ---
Per nursing pt got diaphoretic while trying have a BM this morning. Pt states not wanting to be seen for OT and just wanting to rest. To check on the pt later.
[2021-01-25] MEDS: SODIUM CHLORIDE 0.9% 1,000 ML 1000 ML IV (12:00)
--- NOTE | 2021-01-25 12:08 | PT.IPTN ---
Current Diagnoses Spondylolisthesis, lumbar region (01/23/21) Spinal stenosis, lumbar region with neurogenic claudication (01/23/21) Intervertebral disc disorders with radiculopathy, lumbar region (01/23/21) Surgery Performed Operation Date: 01/23/21 07:45 Actual Procedures p L4-5, L5-S1 TLIF w. posterior inst. Robotic(Not Applicable) - Lu Kuhn MD Physical Therapy Treatment Note M2 PT-IP Current Condition Start: 01/23/21 12:54 Freq: NEEDED Status: Active Protocol: Document 01/25/21 11:41 SP (Rec: 01/25/21 13:14 SP [id number]) Physical Therapy Current Condition Current Condition Evaluation Date 01/23/21 Treatment Diagnosis S/P L4-L5, L5-S1 lumbar fusion , difficulty walking, decreased ROM Onset Date 01/23/21 M3 PT-IP Subjective Start: 01/23/21 12:54 Freq: NEEDED Status: Active Protocol: Document 01/25/21 11:41 SP (Rec: 01/25/21 13:14 SP [id number]) Subjective Physical Therapy Visit Type Type Treatment Note Visit Start Time 11:41 Visit Stop Time 12:08 Total Visit Minutes 27 Notes Pt's in room, completed caregiver training and assist required throughout tx. Vitals: supine BP 111/73 HR 76 SaO2 96 % on RA Seated: 128/77 HR 80 stand: 130/77 HR 85 post mobility seated in chair: 141/83 HR 82. Non symptomatic . Number of POWER DIGGER OPERATOR Visits 3 Physical Therapy Visit Comments Patient Comments Pt willing to work with therapy late am, I feel very weak. Currently receiving IV fluids, POWER DIGGER OPERATOR managed IV pole during tx. Patient Goals Get up to the bathroom. Go home with when feel better, very weak. Therapy Pain Assessment Pain When Pain Assessed During Mobility Pain Present Pain Present Pain Reported Location Lower Back Intensity 4 Scale Used Numeric (0 - 10) Pain Behaviors Facial Grimacing,Guarding Pain Management Techniques Distraction,Modification of Treatment,Re-positioning, Timing of Activity with Medications M4 PT-IP Mobility and Gait Start: 01/23/21 12:54 Freq: NEEDED Status: Active Protocol: Document 01/25/21 11:41 SP (Rec: 01/25/21 13:14 SP [id number]) PT-Bed Mobility Assessment Rolling Type of Rolling Log Rolling,Roll to Left Level of Assist Contact Guard Assistance, Minimal Assistance,1 Person Assistance Supine to Sit Supine to Sit Minimal Assistance,1 Person Assistance,Bedrails Scooting Scooting to Edge of Bed Contact Guard Assistance PT-Transfer Assessment Sit to and From Stand Sit to and from Stand Contact Guard Assistance, Minimal Assistance,1 Person Assistance,Use of Upper Extremities Equipment Transfer Assistive Device Gait Belt,Front Wheeled Walker Orthotic/Prosthetic Devices or Brace: No Transfers Transfer Destination Chair,Toilet Transfer Technique pt amb with FWW Transfer Ability Level of Assist Contact Guard Assistance, Minimal Assistance,1 Person Assistance,Use of Upper Extremities Comments Mobility Comments Pt in bed when arrived reported very tired and feeling weak, on IV fluids this tx but agreeable to getting up to bathroom. LR L with cues for bent knees and RUE reaching across, CGA- 10%A from , L SL>sit Min A for trunk righting to sit, CGA scoot to EOB. Pt seated w/ UE supporting him. Sit>Stand from EOB CG- 20 %A from cues push from bed heavier WB UEs on FWW. Pt ambulated around end of bed noted increased heavier LE advancement decreased foot clearance and stride to bathroom approx 20 ft w/ FWW, CG- min A for trunk stability at times, reports L glut and into posterolateral mid thigh pain. SPT w/ FWW in bathroom CGA w/ Grab bar use Min A from for brief mgt to assist pt using 1 UE at time, Min A slow descent onto toilet. Completed BM and self pericare seated, stable and declined dizziness. Sit>stand Min A w/ grab bar. Support for brief mgt from . Ambulated back to chair, CG- Min A w/ FWW, cued back up fully, HP to chair arms, Min A slow descent to chair. Pt reclined back into chair I am exhausted. OT arrived, inquired assessment of shower. Pt stated I just can't I am wiped out. Pt was in chair with OT and in room. OT took hand off. POWER DIGGER OPERATOR reported to CONTINUITY TESTER and care mgt increased assist and unsteadiness moving around this afternoon. Will continue to assess mobility this afternoon. Gait Assessment Gait Gait Assistance Required: Contact Guard Assist,1 Person Assist Distance (Feet) 20 Able to Maintain Weight Bearing Status Yes During Gait Assistive Devices Assistive Device Gait Belt,Front Wheeled Walker Orthotic/Prosthetic Devices or Brace: No Gait Deviations General Gait Pattern Antalgic,Decreased Stride Length,Decreased Feet Clearance Factors Limiting Gait Function Factors Limiting Gait Function Decreased Activity Tolerance, Decreased Strength,Limited Range of Motion,Pain,Poor Balance Comments Gait Comments See mobility comments Stair Climbing Assessment Comments Stair Climbing Comments Not assessed. Pt reports ramp at home. PT-Balance Assessment Sitting Balance and Reactions Static Sitting Balance Ability Fair Dynamic Sitting Balance Ability Fair Standing Balance and Reactions Static Standing Balance Ability Fair Dynamic Standing Balance Ability Fair Device Used FWW M5 PT-IP Objective Assessments Start: 01/23/21 12:54 Freq: NEEDED Status: Active Protocol: Document 01/23/21 16:43 AW (Rec: 01/23/21 16:58 AW [id number]) Orientation Orientation/Cognition Level of Alertness Alert Orientation Name,Day of Week,Place, Situation Language Function Ability No Deficits Noted Safety Awareness Understands Safety Issues Memory Description No Deficits Noted Gross Range of Motion Lower Extremity ROM Assessment Within Functional Limits Strength Lower Extremity Strength Assessment Bilaterally Impaired Hip 4-/5 Knee 4/5 Ankle 4+/5 Sensation Assessment Sensation Gross Sensation WNL Comments Sensation Comments Pt denies paresthesias or numbness. M6 PT-IP Treatment Start: 01/23/21 12:54 Freq: NEEDED Status: Active Protocol: Document 01/25/21 11:41 SP (Rec: 01/25/21 13:14 SP [id number]) Physical Therapy Treatment Education Education Provided Precautions,Weight Bearing Status,Post-Op Packet,Safety Other Treatments Other Treatment Performed Caregiver training with including: trunk support for bedmob, don gait belt, STS, gait using fWW. M7 PT-IP Assessment and Plan Start: 01/23/21 12:54 Freq: NEEDED Status: Active Protocol: Document 01/25/21 11:41 SP (Rec: 01/25/21 13:14 SP [id number]) PT Summary Assessment and Plan Potential Rehabilitation Potential Good Status of Condition at Evaluation Evolving Summary Impairments Pain,ROM,Strength,Balance,Bed Mobility,Transfers,Gait Progress Towards Goals Slow Progress due to Pain,Slow Progress due to Medical Issues,Slow Progress due to Activity Tolerance Assessment Summary Pt requiring increased support CG- Min A for most mobility and ambulation using FWW due to decrease strength and activity tolerance, Min A to assist trunk to sitting R SL to Sit. Good recall of spinal precautions and FWW use w/ CG- Min A for trunk steadiness this am.Decreased in ambulation tolerated ~20 ft w/ FWW CGA-Min. demonstrated don gait belt and assist druing tx with cues as needed. Recommending HHPT vs SNF for increased strengthening and functional mobility. Will continue to assess progresss. Goals Bed Mobility Goal Standby Assistance Transfer Goal Standby Assistance,Front Wheeled Walker Gait Goal Standby Assistance,Front Wheel Walker Gait Distance 150 Days to Meet Goals 4 Frequency of Treatment Frequency Of Treatment Twice a Day Treatment Plan Physical Therapy Treatment Plan Bed Mobility Training,Transfer Training,Gait Training, Therapeutic Exercise,Balance Retraining,Post Op Education, Discharge Planning,Hot or Cold Pack Other Recommendations and Next Treatment review precautions; progress Focus gait training with FWW. Precautions Lumbar Precautions Log Roll,No Twisting,Limit Bending,Lifting Restriction of 10 lbs,Gait Belt above Incisional Area Weight Bearing Status Weight Bearing Status Weight Bear as Tolerated Recommendations To Nursing Amount of Assist Needed 1 Person Assist Discharge Recommendations PT Discharge Recommendations Home with 10/09 Assist Available,Home Health,Home vs SNF Transportation Needs at Discharge Private Vehicle
[2021-01-25] MEDS: HYDROMORPHONE 0.5 MG INJ IV ×3 (12:37→21:22)
--- NOTE | 2021-01-25 12:38 | OT.IP.TRT ---
Current Diagnoses Spondylolisthesis, lumbar region (01/23/21) Spinal stenosis, lumbar region with neurogenic claudication (01/23/21) Intervertebral disc disorders with radiculopathy, lumbar region (01/23/21) Surgery Performed Operation Date: 01/23/21 07:45 Actual Procedures p L4-5, L5-S1 TLIF w. posterior inst. Robotic(Not Applicable) - Lu Kuhn MD Occupational Therapy Treatment Note M2 OT-IP Current Condition Start: 01/24/21 16:26 Freq: Status: Active Protocol: Document 01/24/21 15:10 [facility] (Rec: 01/24/21 16:38 [facility] [id number]) Occupational Therapy Current Condition Current Condition Evaluation Date 01/24/21 Treatment Diagnosis S/p L4-5 L5-S1 TLIF Diagnosis Onset Date 01/23/21 M3 OT- IP Subjective and Pain Start: 01/24/21 16:26 Freq: Status: Active Protocol: Document 01/25/21 12:37 [facility] (Rec: 01/25/21 12:50 [facility] [id number]) OT- Subjective Occupational Therapy Visit Type Type Treatment Note Visit Start Time 11:58 Visit Stop Time 12:38 Total Visit Minutes 40 Occupational Therapy Visit Comments Patient Comments Pt initially agreed to shower but then got too tired and wanting just to go back to bed . Patient/Caregiver Goals TO go home. OT Pain Assessment Pain When Pain Assessed At Rest Pain Present Pain Present Pain Reported Location Lower Back Intensity 7 Scale Used Numeric (0 - 10) M4 OT- IP ADL's Start: 01/24/21 16:26 Freq: Status: Active Protocol: Document 01/25/21 12:37 [facility] (Rec: 01/25/21 12:50 [facility] [id number]) OT ADL-Dressing General Eval Lower Body Dressing Ability Moderate Assistance Comments OT Dressing Comments Able to issue admin assistant and long handled sponge for pt. Pt's states will just assist with him for his socks. OT ADL-Toileting Comments OT Toileting Comments Pt able to assist pt for toileting needs. OT ADL-Bathing Comments OT Bathing Comments Pt states now not wanting to shower at this time. M5 OT- IP IADL's Start: 01/24/21 16:26 Freq: Status: Active Protocol: Document 01/24/21 15:10 [facility] (Rec: 01/24/21 16:38 [facility] [id number]) OT-Instrumental Activities of Daily Living Home Safety Awareness Home Safety Comments Pt a bit groggy and pt's to be able to assist pt at home for his needs. Pt needing reminders for his back precautions. M6 OT- IP Functional Cognition Start: 01/24/21 16:26 Freq: Status: Active Protocol: Document 01/25/21 12:37 [facility] (Rec: 01/25/21 12:50 [facility] [id number]) Cognitive Factors Limiting Selfcare Function Cognitive Comments Cognitive Assessment Comments Pt a bit slow to process and needing extra time to follow commands and move. M7 OT- IP Mobility and Balance Start: 01/24/21 16:26 Freq: Status: Active Protocol: Document 01/25/21 12:37 [facility] (Rec: 01/25/21 12:50 [facility] [id number]) OT- Bed Mobility Assessment Sit to Supine Sit to Supine Assist Moderate Assistance OT-Transfer Assessment Sit to and From Stand Sit to and from Stand Minimal Assistance Transfers Transfer Ability Contact Guard Assistance Technique Transfer Destination Bed,Chair Transfer Technique Stand Step Pivot Devices Transfer Assistive Devices Gait Belt,Front Wheeled Walker Comments Mobility Comments Pt needing more assist to sit down today due to complaining of right leg pain. Pt's also having to assist more to get his legs back into bed. OT- Balance Assessment Sitting Balance and Reactions Static Sitting Balance Ability Good Dynamic Sitting Balance Ability Good Standing Balance and Reactions Static Standing Balance Ability Fair M9 OT- IP Assessment and Plan Start: 01/24/21 16:26 Freq: Status: Active Protocol: Document 01/25/21 12:37 [facility] (Rec: 01/25/21 12:50 [facility] [id number]) OT Summary Assessment and Plan Potential Rehabilitation Potential Good Analytic Complexity at Evaluation Low Summary OT Impairments Pain,Balance,Functional Cognition,Functional Mobility, Dressing,Toileting,Bathing, Toilet Transfers,Shower Transfers,Activity Tolerance Progress Towards Goals Slow Progress due to Medical Issues,Slow Progress due to Activity Tolerance,Slow Progress due to Cognition Assessment Summary Pt having much more pain today and needing more time to process and move today. Pt's concerned about how pt is doing. PA notified on his pain levels and when to see the pt. Pt to go home with his to assist 10/09 when medically stable. However pending progress, pt may also benefit from skilled rehab. Goals Grooming Goal Independent Dressing Goal Independent Toileting Goal Independent Bathing Goal Minimal Assistance Toilet Transfer Goal Independent Shower Transfer Goal Standby Assistance Patient/Caregiver Education Goal Demonstrate Post-Op Precautions,Caregiver Independent Assisting Patient Days to Meet Goals 5 Frequency of Treatment Frequency Of Treatment Once a Day Treatment Plan OT Treatment Plan ADL Training,Functional Cognition Training,Functional Mobility,Patient/Family Education,Discharge Planning Other Treatment Recommendations and Next shower/caregiver training Treatment Focus Discharge Recommendations OT Discharge Recommendations Home with 10/09 Assist Available,Home Health,SNF Rehab,Home vs SNF Transportation Needs at Discharge Private Vehicle,Wheelchair/ Cabulance
--- NOTE | 2021-01-25 14:50 | PT.IPTN ---
Current Diagnoses Spondylolisthesis, lumbar region (01/23/21) Spinal stenosis, lumbar region with neurogenic claudication (01/23/21) Intervertebral disc disorders with radiculopathy, lumbar region (01/23/21) Surgery Performed Operation Date: 01/23/21 07:45 Actual Procedures p L4-5, L5-S1 TLIF w. posterior inst. Robotic(Not Applicable) - Lu Kuhn MD Physical Therapy Treatment Note M2 PT-IP Current Condition Start: 01/23/21 12:54 Freq: NEEDED Status: Active Protocol: Document 01/25/21 13:56 [facility] (Rec: 01/25/21 15:16 [facility] [id number]) Physical Therapy Current Condition Current Condition Evaluation Date 01/23/21 Treatment Diagnosis S/P L4-L5, L5-S1 lumbar fusion , difficulty walking, decreased ROM Onset Date 01/23/21 M3 PT-IP Subjective Start: 01/23/21 12:54 Freq: NEEDED Status: Active Protocol: Document 01/25/21 13:56 [facility] (Rec: 01/25/21 15:16 SP [id number]) Subjective Physical Therapy Visit Type Type Treatment Note Visit Start Time 13:56 Visit Stop Time 14:50 Total Visit Minutes 54 Notes Pt's in room, completed caregiver training and assist required throughout tx. Number of CUT LACE MACHINE OPERATOR Visits 4 Physical Therapy Visit Comments Patient Comments Pt willing to work with therapy, wanted to assess stairs for awareness if can do before going home so not walk around house to ramp in cold. Patient Goals Wanted to assess stair mgt. Therapy Pain Assessment Pain When Pain Assessed During Mobility Pain Present Pain Present Reassessed Location back, right leg Intensity 7 Scale Used Numeric (0 - 10) Pain Behaviors Facial Grimacing Pain Management Techniques Distraction,Modification of Treatment,Re-positioning, Timing of Activity with Medications M4 PT-IP Mobility and Gait Start: 01/23/21 12:54 Freq: NEEDED Status: Active Protocol: Document 01/25/21 13:56 [facility] (Rec: 01/25/21 15:16 SP [id number]) PT-Bed Mobility Assessment Rolling Type of Rolling Log Rolling,Roll to Left Level of Assist Standby Assistance,Contact Guard Assistance Supine to Sit Supine to Sit Contact Guard Assistance,1 Person Assistance,Bedrails Sit to Supine Sit to Supine Minimal Assistance,1 Person Assistance,Bedrails Scooting Scooting to Edge of Bed Standby Assistance PT-Transfer Assessment Sit to and From Stand Sit to and from Stand Contact Guard Assistance, Minimal Assistance,1 Person Assistance,Use of Upper Extremities Equipment Transfer Assistive Device Gait Belt,Front Wheeled Walker Orthotic/Prosthetic Devices or Brace: No Transfers Transfer Destination Bed,Chair,Toilet,Wheelchair Transfer Technique Stand Step Pivot Transfer Ability Level of Assist Contact Guard Assistance,1 Person Assistance,Use of Upper Extremities Comments Mobility Comments Pt in bathroom FWW positioned in front, attending to pt within arms reach when arrived. Completed self pericare in sitting able void, no success with BM. Sit>Stand w/ grab bar and FWW CGA. Ambulated to sink CGA slow pacing w/FWW approx 10 ft, small YANETH semi receiprocal stepping Min- Mod BUE WB on FWW. Stood at sink about 3 min , needed assist to get soap, couldn't reach needed 1 UE contact on sink for stability cGA, no LOB or deviations. Pt returned to chair at end of bed 5 ft w/ fWW CGA, CGA to descent to chair with BUE. seated rest in chair. Sit> stand CGA, ambulated around room cGA w/ FWW approx 25 ft before returning to bed stand> sit CGA>L SL>supine 10%A for LE suupport into bed. SBA LR. rested on bed 2 min then requested assessment of stairs , not sure want to use ramp, farther and outside nervous weather elements. LR L SBA, L SL>sit, scoot EOB SBA. Sit> stand CGA fWW, ambulated to wc in hallway 5 ft, CGA slow sit into wc. Wheeled pt down to stairs. Completed ascend/ descent 3 stairs L HR and SPC in RUE, CG- 5%A for little stability via with cues as needed for positioning, returned to chair, wheeled back to room. Ambulated back to bed 5 ft w/ FWW, cued for increased foot clearance and stride noted RLE lightly scuffs floor, self corrected. Pt returned to bed 5%A for LEs into bed. Pt had call light and all needs in reach before left, bed alarmed. in room. Gait Assessment Gait Gait Assistance Required: Contact Guard Assist,1 Person Assist Distance (Feet) 25 Able to Maintain Weight Bearing Status Yes During Gait Assistive Devices Assistive Device Gait Belt,Front Wheeled Walker Gait Deviations General Gait Pattern Antalgic,Decreased Stride Length,Decreased Feet Clearance Factors Limiting Gait Function Factors Limiting Gait Function Decreased Activity Tolerance, Decreased Strength,Limited Range of Motion,Pain,Poor Balance Comments Gait Comments see mobility comments Stair Climbing Assessment Evaluation Level of Assist On Stairs Contact Guard Assistance, Minimal Assistance,1 Person Assistance Devices Stair Climbing Assistive Devices Straight Cane,Left Railing Technique/Endurance Stair Climbing Direction Ascend and Descend Stair Climbing Technique Step to Step Number of Steps Climbed 3 Stair Climbing Set # Repetitions (reps) 1 Comments Stair Climbing Comments see mobility comments PT-Balance Assessment Sitting Balance and Reactions Static Sitting Balance Ability Normal Dynamic Sitting Balance Ability Good Standing Balance and Reactions Static Standing Balance Ability Good Dynamic Standing Balance Ability Fair Device Used FWW M5 PT-IP Objective Assessments Start: 01/23/21 12:54 Freq: NEEDED Status: Active Protocol: Document 01/23/21 16:43 [facility] (Rec: 01/23/21 16:58 AW [id number]) Orientation Orientation/Cognition Level of Alertness Alert Orientation Name,Day of Week,Place, Situation Language Function Ability No Deficits Noted Safety Awareness Understands Safety Issues Memory Description No Deficits Noted Gross Range of Motion Lower Extremity ROM Assessment Within Functional Limits Strength Lower Extremity Strength Assessment Bilaterally Impaired Hip 4-/5 Knee 4/5 Ankle 4+/5 Sensation Assessment Sensation Gross Sensation WNL Comments Sensation Comments Pt denies paresthesias or numbness. M6 PT-IP Treatment Start: 01/23/21 12:54 Freq: NEEDED Status: Active Protocol: Document 01/25/21 13:56 SP (Rec: 01/25/21 15:16 SP [id number]) Physical Therapy Treatment Education Education Provided Precautions,Weight Bearing Status,Post-Op Packet,Safety M7 PT-IP Assessment and Plan Start: 01/23/21 12:54 Freq: NEEDED Status: Active Protocol: Document 01/25/21 13:56 SP (Rec: 01/25/21 15:16 SP [id number]) PT Summary Assessment and Plan Potential Rehabilitation Potential Good Status of Condition at Evaluation Evolving Summary Impairments Pain,ROM,Strength,Balance,Bed Mobility,Transfers,Gait Progress Towards Goals Progressing Toward Goals,Slow Progress due to Pain,Slow Progress due to Activity Tolerance Assessment Summary Pt continues to have pain over R posterolateral hip seated> standing mobility. Pt requires increased tiime due to pain and decreased activity tolerance. Requires CG- 5%A during all mob ility using fWW . Pt is ok t o return home with to assist him 24/7 available when medically cleared. Recommend HHPT to assist progress strength and functional mobility. Goals Bed Mobility Goal Standby Assistance Transfer Goal Standby Assistance,Front Wheeled Walker Gait Goal Standby Assistance,Front Wheel Walker Gait Distance 150 Days to Meet Goals 4 Frequency of Treatment Frequency Of Treatment Twice a Day Treatment Plan Physical Therapy Treatment Plan Bed Mobility Training,Transfer Training,Gait Training, Therapeutic Exercise,Balance Retraining,Post Op Education, Discharge Planning,Hot or Cold Pack Other Recommendations and Next Treatment review precautions; progress Focus gait training with FWW. Precautions Lumbar Precautions Log Roll,No Twisting,Limit Bending,Lifting Restriction of 10 lbs,Gait Belt above Incisional Area Weight Bearing Status Weight Bearing Status Weight Bear as Tolerated Recommendations To Nursing Amount of Assist Needed 1 Person Assist Discharge Recommendations PT Discharge Recommendations Home with 24/ Assist Available,Home Health Transportation Needs at Discharge Private Vehicle
[2021-01-25 15:00] VITALS: BP 114/72; PULSE 88; RESP 16; TEMP 36.8; O2SAT 97
[2021-01-25 19:30] VITALS: BP 113/76; PULSE 85; RESP 14; TEMP 37.6; O2SAT 95
[2021-01-25] MEDS: SENNOSIDES 8.6 MG TABLET 17.2 MG PO (21:39)
[2021-01-25] MEDS: LATANOPROST 0.005% OPHTH 2.5 ML 1 DROPS EYE-BOTH (21:40)
[2021-01-25] MEDS: DORZOLAMIDE 2% OPHTH 10 ML 1 DROPS EYE-BOTH (21:40)
[2021-01-25] MEDS: BRIMONIDINE 0.2% OPHTH 5 ML 1 DROPS EYE-BOTH (21:41)
[2021-01-26 01:09] VITALS: BP 136/79; PULSE 85; RESP 14; TEMP 36.8; O2SAT 94
[2021-01-26] MEDS: OXYCODONE IR 5 MG TABLET 10 MG PO ×3 (02:06→11:32)
[2021-01-26] MEDS: hydrOXYzine pamoate 25 MG CAPSULE PO ×3 (02:07→11:34)
[2021-01-26] MEDS: ACETAMINOPHEN 325 MG TABLET 650 MG PO (07:00)
--- NOTE | 2021-01-26 07:38 | PM.PNPO.1 ---
Subjective Subjective Date Patient Seen: 01/26/21 Time Patient Seen: 07:38 Interval history: Patient's pain is moderate. Denies fever or chills. No nausea or vomiting. Exam Vital Signs (past 8 hours): - 01/26/21 01:09 Temperature 98.3 F Pulse Rate 85 Respiratory Rate 14 Blood Pressure 136/79 Pulse Oximetry 94 Oxygen Delivery Method Room Air Oxygen Flow Rate 0 Narrative Exam Narrative: 75-year-old male resting comfortably in bed in no apparent distress. Sensation grossly intact to light touch bilateral lower extremities. Motor functions intact bilateral lower extremities. Dressing is Clean, dry, intact.. Objective Labs Result Diagrams: 01/24/21 05:00 PFSH Medical History Arthritis GERD (gastroesophageal reflux disease) Glaucoma HLD (hyperlipidemia) Hx of subdural hematoma Lumbar disc disease with radiculopathy Lumbar spinal stenosis Neurological disorder (~2018) Prostate cancer Seasonal allergies Spondylolisthesis Surgical History History of kj hole surgery (~2018) History of penile implant Hx of bilateral cataract extraction Hx of foot surgery Hx of LASIK Hx of radical prostatectomy (~2013) Hx of repair of right rotator cuff (2019) Hx of sinus surgery Hx of tonsillectomy Social History household members: spouse and children Smoking Status: Never smoker alcohol intake: current Assessment & Plan Post-op Postoperative Procedures: Procedures Operation Date: 01/23/21 07:45 Actual Procedure Side Surgeon p L4-5, L5-S1 TLIF w. posterior inst. Robotic Not Applicable Lu Kuhn MD Postoperative status narrative: Patient's pain is better controlled. Postoperative plan narrative: Mobilize with physical therapy this morning. Likely discharge home later this morning if safe for home environment per physical therapy. Quality VTE Deep Vein Thrombosis/Pulmonary Embolism Present on Admission: No
[2021-01-26] MEDS: HYDROMORPHONE 0.5 MG INJ IV (07:39)
[2021-01-26] MEDS: PANTOPRAZOLE DR 40 MG TABLET PO (07:39)
[2021-01-26] MEDS: MAGNESIUM HYDROXIDE 30 ML UDC PO (07:39)
[2021-01-26 08:00] VITALS: BP 125/82; PULSE 86; RESP 16; TEMP 37.2; O2SAT 94
--- NOTE | 2021-01-26 09:31 | CM.DPC ---
Addendum entered by BIJU Cadena 01/26/21 10:55: ADD: Per DOCTOR OF OSTEOPATHY and OT, pt did well today and spouse remained bedside for CG training and recommend home with assist and outpt and spouse agreeable to not needing HH at this time and DOCTOR OF OSTEOPATHY informed her that once they get home if they change their mind and want HH they can call Dr. Kuhn's [facility] office and request HH at that time and spouse very agreeable. Plan: Patient to d/c home today with spouse and outpt PT pt. No further SW needs at this time. BIJU Cadena Original Note: DCP Discharge Home and r/o HH Per Ortho PA, pt likely stable for d/c home later today after further PT. Per PT yesterday, recommending home with spouse assist and HH. SW met bedside with spouse and pt and explained role and they confirm they are agreeable with d/c home today via spouse POV and deny any hx of HH but both are agreeable to HH if needed. HH Choice list provided and no preference. SW discussed HH frequency and services and confirmed pt also has Medicare for insurance. SW provided brochure for [facility] based on vendor calendar. SW spoke to DOCTOR OF OSTEOPATHY who will work with pt this morning and may not be a need for HH at d/c but will updated SW prior to d/c to determine if HH referral needed. SW called [facility] and confirmed they cover [facility] and have start of care opening for tomorrow if needed. Plan: SW to follow closely for pt d/c home later today via spouse POV and r/o HH with [facility] vs outpt due to TLIF. BIJU Cadena
[2021-01-26] MEDS: DOCUSATE 100 MG CAPSULE PO (09:56)
[2021-01-26] MEDS: DORZOLAMIDE 2% OPHTH 10 ML 1 DROPS EYE-BOTH (09:56)
[2021-01-26] MEDS: BRIMONIDINE 0.2% OPHTH 5 ML 1 DROPS EYE-BOTH (09:56)
[2021-01-26] MEDS: SODIUM CHLORIDE 0.9% FLUSH 10 ML IV (09:57)
[2021-01-26] MEDS: gemfibroziL 600 MG TABLET PO (10:00)
[2021-01-26] MEDS: polyethylene glycoL 3350 17 GM POWD.PACK PO (10:01)
--- NOTE | 2021-01-26 10:35 | OT.IP.TRT ---
Current Diagnoses Spondylolisthesis, lumbar region (01/23/21) Spinal stenosis, lumbar region with neurogenic claudication (01/23/21) Intervertebral disc disorders with radiculopathy, lumbar region (01/23/21) Surgery Performed Operation Date: 01/23/21 07:45 Actual Procedures p L4-5, L5-S1 TLIF w. posterior inst. Robotic(Not Applicable) - Lu Kuhn MD Occupational Therapy Treatment Note M2 OT-IP Current Condition Start: 01/24/21 16:26 Freq: Status: Active Protocol: Document 01/24/21 15:10 [facility] (Rec: 01/24/21 16:38 [facility] [id number]) Occupational Therapy Current Condition Current Condition Evaluation Date 01/24/21 Treatment Diagnosis S/p L4-5 L5-S1 TLIF Diagnosis Onset Date 01/23/21 M3 OT- IP Subjective and Pain Start: 01/24/21 16:26 Freq: Status: Active Protocol: Document 01/26/21 10:35 [facility] (Rec: 01/26/21 10:42 [facility] [id number]) OT- Subjective Occupational Therapy Visit Type Type Treatment Note Visit Start Time 09:40 Visit Stop Time 10:36 Total Visit Minutes 56 Occupational Therapy Visit Comments Patient Comments Pt agreed to shower and pt's present for caregiver training. Patient/Caregiver Goals TO go home. OT Pain Assessment Pain When Pain Assessed At Rest Pain Present Pain Present Pain Reported M4 OT- IP ADL's Start: 01/24/21 16:26 Freq: Status: Active Protocol: Document 01/26/21 10:35 [facility] (Rec: 01/26/21 10:42 [facility] [id number]) OT ADL-Dressing General Eval Lower Body Dressing Ability Moderate Assistance Comments OT Dressing Comments Pt getting tired and needing assist from his . Pt initially able to practice use of LB dressing equipment. OT ADL-Toileting General Evaluation Toileting Ability Standby Assistance OT ADL-Bathing General Evaluation Bathing Ability Moderate Assistance Areas Needing Assistance Wash/Dry Back,Wash/Dry Lower Extremities Comments OT Bathing Comments Pt's able to safety assist pt for all showering needs. M5 OT- IP IADL's Start: 01/24/21 16:26 Freq: Status: Active Protocol: Document 01/24/21 15:10 [facility] (Rec: 01/24/21 16:38 [facility] [id number]) OT-Instrumental Activities of Daily Living Home Safety Awareness Home Safety Comments Pt a bit groggy and pt's to be able to assist pt at home for his needs. Pt needing reminders for his back precautions. M6 OT- IP Functional Cognition Start: 01/24/21 16:26 Freq: Status: Active Protocol: Document 01/26/21 10:35 [facility] (Rec: 01/26/21 10:42 [facility] [id number]) Cognitive Factors Limiting Selfcare Function Cognitive Comments Cognitive Assessment Comments Pt still needing cues for safety and and problem solving at times. Pt continues to be a little slow to process information. M7 OT- IP Mobility and Balance Start: 01/24/21 16:26 Freq: Status: Active Protocol: Document 01/26/21 10:35 [facility] (Rec: 01/26/21 10:42 [facility] [id number]) OT- Bed Mobility Assessment Supine to Sit Supine to Sit Assist Standby Assistance,Bedrails Sit to Supine Sit to Supine Assist Moderate Assistance OT-Transfer Assessment Sit to and From Stand Sit to and from Stand Contact Guard Assistance, Minimal Assistance Transfers Transfer Ability Contact Guard Assistance, Minimal Assistance Technique Transfer Destination Bed,Chair,Shower Stall,Toilet Transfer Technique Stand Step Pivot Devices Transfer Assistive Devices Gait Belt,Front Wheeled Walker Comments Mobility Comments Pt's able to safely assist pt to don/doff the gait belt and for all mobility needs. OT- Balance Assessment Sitting Balance and Reactions Static Sitting Balance Ability Good Dynamic Sitting Balance Ability Good Standing Balance and Reactions Static Standing Balance Ability Fair M9 OT- IP Assessment and Plan Start: 01/24/21 16:26 Freq: Status: Active Protocol: Document 01/26/21 10:35 [facility] (Rec: 01/26/21 10:42 [facility] [id number]) OT Summary Assessment and Plan Potential Rehabilitation Potential Good Analytic Complexity at Evaluation Low Summary Progress Towards Goals Progressing Toward Goals Assessment Summary Pt's has completed all caregiver training for all ADl and transfer needs. Pt to go home with home health when medically stable. Discharge Recommendations OT Discharge Recommendations Home with 24/7 Assist Available,Home Health Transportation Needs at Discharge Private Vehicle
--- NOTE | 2021-01-26 10:48 | PT.IPTN ---
Current Diagnoses Spondylolisthesis, lumbar region (01/23/21) Spinal stenosis, lumbar region with neurogenic claudication (01/23/21) Intervertebral disc disorders with radiculopathy, lumbar region (01/23/21) Surgery Performed Operation Date: 01/23/21 07:45 Actual Procedures p L4-5, L5-S1 TLIF w. posterior inst. Robotic(Not Applicable) - Lu Kuhn MD Physical Therapy Treatment Note M2 PT-IP Current Condition Start: 01/23/21 12:54 Freq: NEEDED Status: Active Protocol: Document 01/25/21 13:56 SP (Rec: 01/25/21 15:16 SP [id number]) Physical Therapy Current Condition Current Condition Evaluation Date 01/23/21 Treatment Diagnosis S/P L4-L5, L5-S1 lumbar fusion , difficulty walking, decreased ROM Onset Date 01/23/21 M3 PT-IP Subjective Start: 01/23/21 12:54 Freq: NEEDED Status: Active Protocol: Document 01/26/21 10:30 KS (Rec: 01/26/21 12:32 KS [id number]) Subjective Physical Therapy Visit Type Type Treatment Note Visit Start Time 10:30 Visit Stop Time 10:48 Total Visit Minutes 18 Notes Pts in room and able to assist. Number of REGISTERED NURSE NURSERY Visits 5 Physical Therapy Visit Comments Patient Comments Pt agreeable to working with therapy. M4 PT-IP Mobility and Gait Start: 01/23/21 12:54 Freq: NEEDED Status: Active Protocol: Document 01/26/21 10:30 KS (Rec: 01/26/21 12:32 KS [id number]) PT-Bed Mobility Assessment Rolling Type of Rolling Log Rolling,Roll to Left Level of Assist Standby Assistance,Contact Guard Assistance Supine to Sit Supine to Sit Standby Assistance,1 Person Assistance Sit to Supine Sit to Supine Contact Guard Assistance, Minimal Assistance,1 Person Assistance PT-Transfer Assessment Comments Mobility Comments Pt only wanting to review bed mobility prior to returning home. Able to recall all precautions. SBA for logroll and sup<>sit. Pts then provided CGA to Min A for sit< >sup for LE guidance into bed. Reveiwed at home safety measures and pt and state they feel safe to go back home. Gait Assessment Comments Gait Comments Not assessed PT-Balance Assessment Sitting Balance and Reactions Static Sitting Balance Ability Normal Dynamic Sitting Balance Ability Good M5 PT-IP Objective Assessments Start: 01/23/21 12:54 Freq: NEEDED Status: Active Protocol: Document 01/23/21 16:43 AW (Rec: 01/23/21 16:58 AW [id number]) Orientation Orientation/Cognition Level of Alertness Alert Orientation Name,Day of Week,Place, Situation Language Function Ability No Deficits Noted Safety Awareness Understands Safety Issues Memory Description No Deficits Noted Gross Range of Motion Lower Extremity ROM Assessment Within Functional Limits Strength Lower Extremity Strength Assessment Bilaterally Impaired Hip 4-/5 Knee 4/5 Ankle 4+/5 Sensation Assessment Sensation Gross Sensation WNL Comments Sensation Comments Pt denies paresthesias or numbness. M6 PT-IP Treatment Start: 01/23/21 12:54 Freq: NEEDED Status: Active Protocol: Document 01/26/21 10:30 KS (Rec: 01/26/21 12:32 KS [id number]) Physical Therapy Treatment Education Education Provided Precautions,Weight Bearing Status,Post-Op Packet,Safety M7 PT-IP Assessment and Plan Start: 01/23/21 12:54 Freq: NEEDED Status: Active Protocol: Document 01/26/21 10:30 KS (Rec: 01/26/21 12:32 KS [id number]) PT Summary Assessment and Plan Potential Rehabilitation Potential Good Status of Condition at Evaluation Evolving Summary Impairments Pain,ROM,Strength,Balance,Bed Mobility,Transfers,Gait Progress Towards Goals Progressing Toward Goals,Slow Progress due to Pain,Slow Progress due to Activity Tolerance Assessment Summary Pt continues to show improvement w/ bed mobility, only requiring SBA for logroll and CGA to Min A for LE guidance when getting back into bed, which his was able to safely provide. Discussed safety at home and FWW use. Pt and feel ready to return home and report no further needs. Goals Bed Mobility Goal Standby Assistance Transfer Goal Standby Assistance,Front Wheeled Walker Gait Goal Standby Assistance,Front Wheel Walker Gait Distance 150 Days to Meet Goals 4 Frequency of Treatment Frequency Of Treatment Twice a Day Treatment Plan Physical Therapy Treatment Plan Bed Mobility Training,Transfer Training,Gait Training, Therapeutic Exercise,Balance Retraining,Post Op Education, Discharge Planning,Hot or Cold Pack Other Recommendations and Next Treatment review precautions; progress Focus gait training with FWW. Precautions Lumbar Precautions Log Roll,No Twisting,Limit Bending,Lifting Restriction of 10 lbs,Gait Belt above Incisional Area Weight Bearing Status Weight Bearing Status Weight Bear as Tolerated Recommendations To Nursing Amount of Assist Needed 1 Person Assist Discharge Recommendations PT Discharge Recommendations Home with 10/09 Assist Available,Home Health Transportation Needs at Discharge Private Vehicle
--- NOTE | 2021-01-26 12:39 | PC.NURSE ---
Pt A&Ox3. VSS, afebrile this a.m. Reports feeling constipated but passing copious amount of gas. Spouse at bedside supportive and helpful. Pt up to BR and back to bed without difficulty but reports increased intense pains with movement. He reports adequate pain relief with prn oxycodone, vesteril and dilaudid as well as tylenol. OT assisted patient with shower. Medipore dressing changed, minimal serosanguianeous drainage from prior dressing anne marie intact, mildly pink skin surrounding without edema. Patient and verbalized understanding of site care, medications, activity and follow up appoinmtents. He is escorted by wheelchair by [employer]AR[employer] COMP[employer] CLERK to private vehicle with his and all of their belongings at 1150.
== END 2021-01-26 11:50 | disposition home or self-care (01) ==
LOC: OR 06:04 → AC 06:07 → ICU 15:18 → AC 01-24 05:57
PROVIDERS: Admitting Provider Orthopaedic Surgery Orthopaedic Surgery of the Spine; PCP Internal Medicine; Referring Provider Physical Medicine & Rehabilitation Pain Medicine; Visit Provider Orthopaedic Surgery Orthopaedic Surgery of the Spine
PROC: (CPT 20939; principal; 2021-01-23 07:45)
DX: M43.16 Spondylolisthesis, lumbar region (principal); M48.062 Spinal stenosis, lumbar region with neurogenic claudication; M51.16 Intervertebral disc disorders with radiculopathy, lumbar region; E78.5 Hyperlipidemia, unspecified
CPT/HCPCS: 20939; 63047; 22633; 63048; 22853 ×2; 22842; 22634; 36415; 72100; 76000; 82962; 85014; 85018; 97116; 97161; 97165; 97530; 97535; C1776; G0378; J0171; J0690; J1100; J1170; J2060; J2250; J2405; J2704; J3010; J3410